=== PATIENT | female | born 1965 | race American Indian/Alaskan Native ===

== ENCOUNTER 2017-05-10 18:06 | Emergency (ER) | payer MEDICAID, OTHER ==
[2017-05-10 19:42] VITALS: BP 141/74
[2017-05-10] MEDS ORDERED: Acetaminophen 325 MG Tab PO ONE (21:10)
--- NOTE | 2017-05-10 21:16 | EDM.PDOC ---
ED HPI GENERAL MEDICAL PROBLEM - General Chief Complaint: Lower Extremity Injury/Pain Stated Complaint: PAIN IN FEET [id number] Time Seen by Provider: 05/10/17 21:08 Source of Information: Reports: Patient History Limitations: Reports: No Limitations - History of Present Illness INITIAL COMMENTS - FREE TEXT/NARRATIVE: Bilateral foot pain for a month. No change, Was given some medication from foot dr but doesnt know what medication ws or what type of reaction she had. Upcoming appointment in am wwith PCP regarding foot pain, but wanted to lseep tonight. Pain better if walking worse if still . Only tried aspirin this am. Does not check her blood sugars. Bilateral Feet Pain Score (Numeric/FACES): 4 - Related Data Allergies Allergy/AdvReac Type Severity Reaction Status Date / Time aspirin Allergy Hives Verified 05/10/17 19:35 Home Meds: Home Meds metFORMIN [Glucophage] 500 mg PO BIDMEALS 05/10/17 [History] Past Medical History Respiratory History: Reports: Asthma Endocrine/Metabolic History: Reports: Diabetes, Type II Social & Family History - Family History Family Medical History: Noncontributory - Tobacco Use Smoking Status *Q: Current Some Day Smoker Years of Tobacco use: 1 Packs/Tins Daily: 0.2 Used Tobacco, but Quit: No Second Hand Smoke Exposure: Yes - Caffeine Use Caffeine Use: Reports: Coffee, Soda - Alcohol Use Days Per Week of Alcohol Use: 0 Number of Drinks Per Day: 6 Total Drinks Per Week: 0 - Recreational Drug Use Recreational Drug Use: No - Living Situation & Occupation Living situation: Reports: with Family Occupation: Unemployed Review of Systems - Review of Systems Review Of Systems: ROS reveals no pertinent complaints other than HPI. ED EXAM, GENERAL - Physical Exam Exam: See Below Exam Limited By: No Limitations General Appearance: Alert, No Apparent Distress Eye Exam: Bilateral Eye: EOMI Ears: Normal External Exam, Normal TMs Nose: Normal Inspection Throat/Mouth: Normal Inspection, Normal Oropharynx, Inflammation Head: Atraumatic, Normocephalic Neck: Normal Inspection Respiratory/Chest: No Respiratory Distress Cardiovascular: Normal Peripheral Pulses, Regular Rate, Rhythm GI/Abdominal: Soft, Non-Tender, No Organomegaly Course - Vital Signs Last Recorded V/S: Last Vital Signs Temp 97.8 F 05/10/17 19:46 Pulse 65 05/10/17 19:46 Resp 16 05/10/17 19:46 BP 141/74 H 05/10/17 19:46 Pulse Ox 100 05/10/17 19:46 - Orders/Labs/Meds Labs: Laboratory Tests 05/10/17 Range/Units 21:16 POC Glucose 142 H (70-105) mg/dl Meds: Medications Discontinued Medications Generic Name Dose Route Start Last Admin Trade Name Bayron PRN Reason Stop Dose Admin Acetaminophen 650 mg 05/10/17 21:10 05/10/17 21:17 Tylenol PO 05/10/17 21:11 650 mg NOW ONE Administration Departure - Departure Time of Disposition: 21:16 Disposition: Home, Self-Care 01 Condition: Good Clinical Impression: Bilateral foot pain, Diabetes mellitus type 2, noninsulin dependent - Discharge Information Instructions: Diabetic Neuropathy Referrals: PCP,None [Primary Care Provider] - Forms: ED Department Discharge Additional Instructions: Follow up with primary care as scheduled in am tylenol 650mg every 4 hours as needed for discomfort
== END 2017-05-10 21:26 | disposition home or self-care (01) ==
LOC: DL.ED 18:06
DX: M79.672 Pain in left foot (principal); M79.671 Pain in right foot; E11.9 Type 2 diabetes mellitus without complications; F17.210 Nicotine dependence, cigarettes, uncomplicated; J45.909 Unspecified asthma, uncomplicated; Z79.84 Long term (current) use of oral hypoglycemic drugs; Z88.6 Allergy status to analgesic agent
CPT/HCPCS: 82962; 99283; A9270

== ENCOUNTER 2019-11-18 13:55 | Emergency (ER) | payer MEDICAID ==
--- NOTE | 2019-11-18 14:07 | EDM.PDOC ---
ED HPI GENERAL MEDICAL PROBLEM - General Chief Complaint: Chest Pain Stated Complaint: UNKNOWN- AMBULANCE Time Seen by Provider: 11/18/19 14:07 Source of Information: Reports: Patient, EMS, Old Records, RN, RN Notes Reviewed History Limitations: Reports: No Limitations - History of Present Illness INITIAL COMMENTS - FREE TEXT/NARRATIVE: Pt arrrives from home by [facility] with c/o cough and congestion for about 2 weeks. The cough worsened about 3 days ago and she has been getting up some green sputum. She also began to have sharp chest pains with coughing. Today she also had the pain with deep breathing. She cleans her house every day with bleach due to fear of the stearns virus. Today she thinks she breathed too much of the bleach and it made her cough more. She told her daughter that she had chest pain with coughing, so the daughter called 911. EMS gave one NTG 0.4mg without relief. Pt is allergic to Aspirin. Pt denies fever, chills, edema, wheezing, or syncope. She denies recent travel, or any exposure to confirmed or suspected Covid-19 cases. Chest Pain Score (Numeric/FACES): 6 - Related Data Allergies Allergy/AdvReac Type Severity Reaction Status Date / Time aspirin Allergy Hives Verified 11/18/19 14:12 Home Meds: Home Meds Insulin Glarg,Human.Rec.Analog [Lantus Solostar] 25 units SQ DAILY 11/18/19 [ History] Past Medical History Respiratory History: Reports: Asthma Endocrine/Metabolic History: Reports: Diabetes, Type II, Obesity/BMI 30+ Social & Family History - Family History Family Medical History: Noncontributory - Caffeine Use Caffeine Use: Reports: Coffee, Soda - Living Situation & Occupation Living situation: Reports: with Family Occupation: Unemployed ED ROS GENERAL - Review of Systems Review Of Systems: Comprehensive ROS is negative, except as noted in HPI. ED EXAM, GENERAL - Physical Exam Exam: See Below Exam Limited By: No Limitations General Appearance: Alert, WD/WN, No Apparent Distress, Obese Eye Exam: Bilateral Eye: Normal Inspection Nose: Normal Inspection, Normal Mucosa, No Blood Throat/Mouth: Normal Inspection, Normal Oropharynx, Normal Voice, No Airway Compromise Head: Atraumatic, Normocephalic Neck: Normal Inspection, Supple, Non-Tender, Full Range of Motion. No: Lymphadenopathy (L), Lymphadenopathy (R) Respiratory/Chest: No Respiratory Distress, Lungs Clear, Normal Breath Sounds, No Accessory Muscle Use, Other (Dry cough. Chest pain is reproducible by palpation.) Cardiovascular: Regular Rate, Rhythm, No Edema GI/Abdominal: Normal Bowel Sounds, Soft, Non-Tender, Other (Benign obese abdomen ) Back Exam: Normal Inspection Extremities: Normal Inspection, Normal Range of Motion, Non-Tender, No Pedal Edema. No: Odell's Sign Neurological: Alert, Oriented, CN II-XII Intact, Normal Cognition, No Motor/ Sensory Deficits Psychiatric: Normal Affect, Normal Mood Skin Exam: Warm, Dry, Intact, Normal Color, No Rash EKG INTERPRETATION EKG Date: 11/18/19 Time: 14:05 Rhythm: Other (Sinus edmundo) Rate (Beats/Min): 57 [place]: Normal P-Wave: Present QRS: Normal ST-T: Other (nonspecific T wave changes.) QT: Normal Comparison: NA - No Prior EKG Course - Vital Signs Last Recorded V/S: Last Vital Signs Temp 97.2 F 11/18/19 14:05 Pulse 61 11/18/19 14:05 Resp 18 11/18/19 14:05 BP 166/76 H 11/18/19 14:05 Pulse Ox 98 11/18/19 14:05 - Orders/Labs/Meds Orders: Active Orders 24 hr Category Date Time Status EKG 12 Lead [EKG Documentation Completion] [RC] STAT Care 11/18/19 14:07 Active B-TYPE NATRIURETIC PEPTIDE,BNP [CHEM] Stat Lab 11/18/19 14:24 Results COMPREHENSIVE METABOLIC PN,CMP [CHEM] Stat Lab 11/18/19 14:24 Results LIPASE [CHEM] Stat Lab 11/18/19 14:24 Results TROPONIN I [CHEM] Stat Lab 11/18/19 14:24 Results Labs: Laboratory Tests 11/18/19 11/18/19 Range/Units 14:24 14:24 WBC 6.5 (5.0-10.0) 10^3/uL RBC 4.91 (4.2-5.4) 10^6/uL Hgb 13.4 D (12.0-16.0) g/dL Hct 38.6 (37.0-47.0) % MCV 78.6 L D (80-100) fL MCH 27.3 (27.0-34.0) pg MCHC 34.7 (33.0-35.0) g/dL Plt Count 215 (150-450) 10^3/uL Neut % (Auto) 60.6 (42.2-75.2) % Lymph % (Auto) 30.1 (20.5-50.1) % [place] % (Auto) 5.9 (2-8) % Eos % (Auto) 3.1 H (1.0-3.0) % Baso % (Auto) 0.3 (0.0-1.0) % Sodium 138 (136-145) mmol/L Potassium 3.8 (3.5-5.1) mmol/L Chloride 100 (98-107) mmol/L Carbon Dioxide 26 (21-32) mmol/L Anion Gap 15.8 H (7-13) mEq/L BUN 6 L (7-18) mg/dL Creatinine 0.65 (0.55-1.02) mg/dL Est Cr Clr Drug Dosing 86.96 mL/min Estimated GFR (MDRD) > 60 BUN/Creatinine Ratio 9.2 (No establ ref range) Glucose 267 H (74-99) mg/dL Calcium 8.3 L (8.5-10.1) mg/dL Total Bilirubin 0.6 (0.2-1.0) mg/dL AST 14 L (15-37) U/L ALT 17 (14-59) U/L Alkaline Phosphatase 114 (46-116) U/L Troponin I < 0.017 (0.000-0.056) ng/mL Total Protein 7.6 (6.4-8.2) g/dL Albumin 3.3 L (3.4-5.0) g/dL Globulin 4.3 Albumin/Globulin Ratio 0.77 Lipase 94 (73-393) U/L Meds: Medications Discontinued Medications Generic Name Dose Route Start Last Admin Trade Name Freq PRN Reason Stop Dose Admin Promethazine HCl/Codeine 10 ml 11/18/19 14:09 11/18/19 14:18 Phenergan With Codeine PO 11/18/19 14:10 10 ml ONETIME ONE Administration - Radiology Interpretation Free Text/Narrative:: CXR: no acute process per Rad. report. Departure - Departure Time of Disposition: 15:03 Disposition: Home, Self-Care 01 Condition: Good Clinical Impression: Pleuritic chest pain Acute bronchitis Qualifiers: Bronchitis organism: other organism Qualified Code(s): J20.8 - Acute bronchitis due to other specified organisms - Discharge Information *PRESCRIPTION DRUG MONITORING PROGRAM REVIEWED*: Not Applicable *COPY OF PRESCRIPTION DRUG MONITORING REPORT IN PATIENT ANURADHA: Not Applicable Instructions: Acute Bronchitis, Adult, [id number], Pleurisy, [id number] Forms: ED Department Discharge Additional Instructions: Rx: Tessalon Perles 200mg Rx: Tylenol No. 3 Follow up in clinic if not improving in 1 week. Sepsis Event Note - Focused Exam Vital Signs: Vital Signs Temp Pulse Resp BP Pulse Ox 11/18/19 14:05 97.2 F 61 18 166/76 H 98 Date Exam was Performed: 11/18/19 Time Exam was Performed: 15:02 - My Orders Last 24 Hours: My Active Orders 11/18/19 14:07 EKG 12 Lead [EKG Documentation Completion] [RC] STAT 11/18/19 14:24 B-TYPE NATRIURETIC PEPTIDE,BNP [CHEM] Stat COMPREHENSIVE METABOLIC PN,CMP [CHEM] Stat LIPASE [CHEM] Stat TROPONIN I [CHEM] Stat - Assessment/Plan Last 24 Hours: My Active Orders 11/18/19 14:07 EKG 12 Lead [EKG Documentation Completion] [RC] STAT 11/18/19 14:24 B-TYPE NATRIURETIC PEPTIDE,BNP [CHEM] Stat COMPREHENSIVE METABOLIC PN,CMP [CHEM] Stat LIPASE [CHEM] Stat TROPONIN I [CHEM] Stat
[2019-11-18] MEDS ORDERED: Codeine/Promethazine 10-6.25 MG/5 ML Syrup 5 ML UD Cup PO ONE (14:09)
[2019-11-18 14:11] VITALS: BP 166/76; PULSE 61
--- NOTE | 2019-11-18 14:49 | CR ---
EXAMINATION: Chest 1V Frontal SEX: Female AGE: 54 years CLINICAL HISTORY: 54-year-old female complaining of chest PAIN and productive COUGH. INTERPRETATION: (Upright AP portable chest) 1. Reasonable inspiratory effort obese female. External library monitor leads. 2. Normal cardiac silhouette and pulmonary vascularity. No alveolar edema or dependent effusion. 3. No lung mass or hilar lymphadenopathy. 4. No focal lobar infiltrates, atelectasis or collapse. 5. No pneumothorax or pneumomediastinum. Midline tracheal airway and proximal bronchi unremarkable. CONCLUSION: No acute cardiopulmonary abnormality.
[2019-11-18 14:51] LABS: ANION GAP 15.8 mEq/L (7-13); CHLORIDE,CL 100 mmol/L (98-107); SODIUM,NA 138 mmol/L (136-145)
== END 2019-11-18 15:21 | disposition home or self-care (01) ==
LOC: DL.ED 13:55
DX: J20.8 Acute bronchitis due to other specified organisms (principal); J45.909 Unspecified asthma, uncomplicated; E11.9 Type 2 diabetes mellitus without complications; E66.9 Obesity, unspecified; Z68.44 Body mass index [BMI] 60.0-69.9, adult; Z88.8 Allergy status to other drugs, medicaments and biological substances; Z79.4 Long term (current) use of insulin
CPT/HCPCS: 36415; 71045; 80053; 83690; 83880; 84484; 85025; 93005; 99284; A9270

== ENCOUNTER 2020-07-01 17:17 | Emergency (ER) | payer MEDICAID ==
[2020-07-01 17:23] VITALS: BP 164/64; PULSE 58
--- NOTE | 2020-07-01 18:38 | EDM.PDOC ---
ED HPI GENERAL MEDICAL PROBLEM - General Chief Complaint: Respiratory Problem Stated Complaint: AMBULANCE Time Seen by Provider: 07/01/20 18:25 Source of Information: Reports: Patient, RN, RN Notes Reviewed History Limitations: Reports: No Limitations - History of Present Illness INITIAL COMMENTS - FREE TEXT/NARRATIVE: Patient presents to ER per [facility] with complaint of chest pains and shortness of breath, dizziness which began today. Patient states she has been quarantined since Thursday as she was exposed to a cousin who was positive. Patient states she has had a headache on Thursday. States she has been having the chest pain shortness of breath and dizziness today. Denies any fever chills, nausea, vomiting, diarrhea. Patient states she has not lost her sense of taste or smell. Onset: Today, Gradual Bilateral Chest Pain Score (Numeric/FACES): 6 - Related Data Allergies Allergy/AdvReac Type Severity Reaction Status Date / Time aspirin Allergy Hives Verified 07/01/20 17:24 Home Meds: Home Meds Insulin Glarg,Human.Rec.Analog [Lantus Solostar] 25 units SQ DAILY 11/18/19 [History] Insulin Aspart [NovoLOG] 50 units SQ TID 07/01/20 [History] Past Medical History HEENT History: Reports: None Cardiovascular History: Reports: Hypertension Respiratory History: Reports: Asthma Gastrointestinal History: Reports: None Genitourinary History: Reports: None REAL ESTATE REP History: Reports: None Musculoskeletal History: Reports: None Neurological History: Reports: None Psychiatric History: Reports: None Endocrine/Metabolic History: Reports: Diabetes, Type II, Obesity/BMI 30+ Hematologic History: Reports: None Immunologic History: Reports: None Oncologic (Cancer) History: Reports: None Dermatologic History: Reports: None - Infectious Disease History Infectious Disease History: Reports: None - Past Surgical History Head Surgeries/Procedures: Reports: None Social & Family History - Family History Family Medical History: No Pertinent Family History - Tobacco Use Tobacco Use Status *Q: Never Tobacco User Second Hand Smoke Exposure: No - Caffeine Use Caffeine Use: Reports: Coffee, Soda - Recreational Drug Use Recreational Drug Use: No - Living Situation & Occupation Living situation: Reports: with Family Occupation: Unemployed ED ROS GENERAL - Review of Systems Review Of Systems: Comprehensive ROS is negative, except as noted in HPI. ED EXAM, GENERAL - Physical Exam Exam: See Below Exam Limited By: No Limitations General Appearance: Alert, WD/WN, No Apparent Distress Eye Exam: Bilateral Eye: EOMI, Normal Inspection Ears: Normal External Exam, Hearing Grossly Normal Nose: Normal Inspection Throat/Mouth: Normal Inspection, Normal Voice, No Airway Compromise Head: Atraumatic, Normocephalic Neck: Normal Inspection, Supple, Non-Tender, Full Range of Motion Respiratory/Chest: No Respiratory Distress, Lungs Clear, Normal Breath Sounds, No Accessory Muscle Use, Chest Non-Tender Cardiovascular: Normal Peripheral Pulses, Regular Rate, Rhythm, No Edema, No Gallop, No JVD, No Murmur, No Rub Peripheral Pulses: 2+: Radial (L), Radial (R) GI/Abdominal: Normal Bowel Sounds, Soft, Non-Tender (Female) Exam: Deferred Rectal (Female) Exam: Deferred Back Exam: Normal Inspection, Full Range of Motion, NT Extremities: Normal Inspection, Normal Range of Motion, Non-Tender, Normal Capillary Refill, No Pedal Edema Neurological: Alert, Oriented, CN II-XII Intact, Normal Cognition, Normal Gait, Normal Reflexes, No Motor/Sensory Deficits Psychiatric: Normal Affect, Normal Mood Skin Exam: Warm, Dry, Intact, Normal Color, No Rash Lymphatic: No Adenopathy Course - Vital Signs Last Recorded V/S: Last Vital Signs Temp 98.9 F 07/01/20 17:18 Pulse 58 L 07/01/20 17:18 Resp 18 07/01/20 17:18 BP 164/64 H 07/01/20 17:18 Pulse Ox 98 07/01/20 17:18 - Orders/Labs/Meds Orders: Active Orders 24 hr Category Date Time Status EKG 12 Lead [EKG Documentation Completion] [RC] STAT Care 07/01/20 17:31 Active CORONAVIRUS COVID-19 PCR PHL Stat Lab 07/01/20 17:37 Received Azithromycin [Zithromax] Med 07/01/20 19:05 Once 500 mg PO ONETIME ONE predniSONE Med 07/01/20 19:06 Once 40 mg PO ONETIME ONE Labs: Laboratory Tests 07/01/20 07/01/20 Range/Units 18:19 18:19 WBC 4.7 L (5.0-10.0) 10^3/uL RBC 4.91 (4.2-5.4) 10^6/uL Hgb 13.5 (12.0-16.0) g/dL Hct 39.6 (37.0-47.0) % MCV 80.7 (80-100) fL MCH 27.5 (27.0-34.0) pg MCHC 34.1 (33.0-35.0) g/dL Plt Count 226 (150-450) 10^3/uL Neut % (Auto) 45.4 (42.2-75.2) % Lymph % (Auto) 38.5 (20.5-50.1) % [place] % (Auto) 12.3 H (2-8) % Eos % (Auto) 3.6 H (1.0-3.0) % Baso % (Auto) 0.2 (0.0-1.0) % Sodium 139 (136-145) mmol/L Potassium 3.9 (3.5-5.1) mmol/L Chloride 102 (98-107) mmol/L Carbon Dioxide 29 (21-32) mmol/L Anion Gap 11.9 (7-13) mEq/L BUN 6 L (7-18) mg/dL Creatinine 0.67 (0.55-1.02) mg/dL Est Cr Clr Drug Dosing 80.00 mL/min Estimated GFR (MDRD) > 60 BUN/Creatinine Ratio 9.0 (No establ ref range) Glucose 137 H (74-99) mg/dL Calcium 8.7 (8.5-10.1) mg/dL Total Bilirubin 0.8 (0.2-1.0) mg/dL AST 16 (15-37) U/L ALT 18 (14-59) U/L Alkaline Phosphatase 107 (46-116) U/L Troponin I < 0.017 (0.000-0.056) ng/mL Total Protein 7.8 (6.4-8.2) g/dL Albumin 3.4 (3.4-5.0) g/dL Globulin 4.4 Albumin/Globulin Ratio 0.8 - Radiology Interpretation Free Text/Narrative:: Chest xray: PROCEDURE INFORMATION: Exam: XR Chest, 1 View Exam date and time: 07/01/2020 6:44 PM Age: 55 years old Clinical indication: Cough; Additional info: Cough, covid exposure TECHNIQUE: Imaging protocol: XR of the chest Views: 1 view. COMPARISON: No relevant prior studies available. FINDINGS: Lungs: Unremarkable. No consolidation. Pleural space: Unremarkable. No pleural effusion. No pneumothorax. Heart/Mediastinum: Unremarkable. No cardiomegaly. Bones/joints: Unremarkable. IMPRESSION: No acute findings. Thank you for allowing us to participate in the care of your patient. Dictated and Authenticated by: Lion Tavares MD 07/01/2020 6:58 PM Central Time ([place] & [place]) See rad report Departure - Departure Time of Disposition: 19:06 Disposition: Home, Self-Care 01 Condition: Good Clinical Impression: Upper respiratory infection Qualifiers: URI type: unspecified viral URI Qualified Code(s): J06.9 - Acute upper respiratory infection, unspecified - Discharge Information *PRESCRIPTION DRUG MONITORING PROGRAM REVIEWED*: No *COPY OF PRESCRIPTION DRUG MONITORING REPORT IN PATIENT ANURADHA: No Instructions: Viral Respiratory Infection, [id number], Upper Respiratory Infection, Adult, [id number] Forms: ED Department Discharge Additional Instructions: RX: Azithromycin, Prednisone Stay isolated and quarantine until you hear your results Follow up with your primary care facility Return to the ER with any worsening of problems Rest, drink plenty of fluids Sepsis Event Note (ED) - Evaluation Sepsis Screening Result: No Definite Risk - Focused Exam Vital Signs: Vital Signs Temp Pulse Resp BP Pulse Ox 07/01/20 17:18 98.9 F 58 L 18 164/64 H 98 - My Orders Last 24 Hours: My Active Orders 07/01/20 17:31 EKG 12 Lead [EKG Documentation Completion] [RC] STAT 07/01/20 17:37 CORONAVIRUS COVID-19 PCR PHL Stat 07/01/20 19:05 Azithromycin [Zithromax] 500 mg PO ONETIME ONE 07/01/20 19:06 predniSONE 40 mg PO ONETIME ONE - Assessment/Plan Last 24 Hours: My Active Orders 07/01/20 17:31 EKG 12 Lead [EKG Documentation Completion] [RC] STAT 07/01/20 17:37 CORONAVIRUS COVID-19 PCR PHL Stat 07/01/20 19:05 Azithromycin [Zithromax] 500 mg PO ONETIME ONE 07/01/20 19:06 predniSONE 40 mg PO ONETIME ONE
[2020-07-01 18:41] LABS: ANION GAP 11.9 mEq/L (7-13); CHLORIDE,CL 102 mmol/L (98-107); SODIUM,NA 139 mmol/L (136-145)
--- NOTE | 2020-07-01 18:58 | CR ---
PROCEDURE INFORMATION: Exam: XR Chest, 1 View Exam date and time: 07/01/2020 6:44 PM Age: 55 years old Clinical indication: Cough; Additional info: Cough, covid exposure TECHNIQUE: Imaging protocol: XR of the chest Views: 1 view. COMPARISON: No relevant prior studies available. FINDINGS: Lungs: Unremarkable. No consolidation. Pleural space: Unremarkable. No pleural effusion. No pneumothorax. Heart/Mediastinum: Unremarkable. No cardiomegaly. Bones/joints: Unremarkable. IMPRESSION: No acute findings.
[2020-07-01] MEDS ORDERED: Azithromycin 250 MG Tab PO ONE (19:05)
[2020-07-01] MEDS ORDERED: predniSONE 20 MG Tab PO ONE (19:06)
== END 2020-07-01 19:19 | disposition home or self-care (01) ==
LOC: DL.ED 17:17
DX: U07.1 COVID-19 (principal); J06.9 Acute upper respiratory infection, unspecified; I10 Essential (primary) hypertension; J45.909 Unspecified asthma, uncomplicated; E11.9 Type 2 diabetes mellitus without complications; E66.9 Obesity, unspecified; Z88.8 Allergy status to other drugs, medicaments and biological substances; Z79.4 Long term (current) use of insulin; Z68.31 Body mass index [BMI] 31.0-31.9, adult
CPT/HCPCS: 36415; 71045; 80053; 84484; 85025; 87635; 93005; 99285; A9270; J7512; U0002

== ENCOUNTER 2021-05-17 04:05 | Emergency (ER) | payer MEDICAID ==
--- NOTE | 2021-05-17 04:42 | EDM.PDOC ---
"<Ibrahima Turner - Last Filed: 05/17/21 08:06> ED HPI GENERAL MEDICAL PROBLEM - General Stated Complaint: AMBULANCE Time Seen by Provider: 05/17/21 04:20 - Related Data Allergies Allergy/AdvReac Type Severity Reaction Status Date / Time aspirin Allergy Hives Verified 07/01/20 17:24 Home Meds: Home Meds Insulin Glarg,Human.Rec.Analog [Lantus Solostar] 25 units SQ DAILY 11/18/19 [History] Insulin Aspart [NovoLOG] 50 units SQ TID 07/01/20 [History] Course - Radiology Interpretation Free Text/Narrative:: [facility] Final Radiology Report Call: [phone] assistance Online chat: [email or web address] Name: LORRAINE CUETO Age: 56Years F Date: 05/17/2021 SSN: -- : [id number] Study: CT ABDOMEN PELVIS W CONT Requesting Physician: Vera Mckeon Images: [id number] Addl Studies: Provided Clinical History: RLQ pain x1 week Contrast: With Contrast Medium: Isovue 300 Contrast Amount: 75 mL Contrast Method: Intravenous (IV) Page 1 of 2 PROCEDURE INFORMATION: Exam: CT Abdomen And Pelvis With Contrast Exam date and time: 05/17/2021 5:26 AM Age: 56 years old Clinical indication: Other: Rlq pain x1 week TECHNIQUE: Imaging protocol: Computed tomography of the abdomen and pelvis with contrast. Radiation optimization: All CT scans at this facility use at least one of these dose optimization techniques: automated exposure control; mA and/or kV adjustment per patient size (includes targeted exams where dose is matched to clinical indication); or iterative reconstruction. Contrast material: ISOVUE 300; Contrast volume: 75 ml; Contrast route: INTRAVENOUS (IV); COMPARISON: No relevant prior studies available. FINDINGS: Lungs: There is dependent atelectasis at the lung bases bilaterally. Liver: There is a diffuse decrease in hepatic parenchymal density, consistent with mild fatty infiltration. Gallbladder and bile ducts: Cholelithiasis without ancillary signs to suggest acute cholecystitis. Pancreas: Normal. No ductal dilation. Spleen: Normal. No splenomegaly. Adrenal glands: 7 mm nodule at the medial limb of the left adrenal gland measuring greater than expected for non hyperfunctioning adrenal adenoma. Kidneys and ureters: Normal. No hydronephrosis. Stomach and bowel: Unremarkable. No obstruction. No mucosal thickening. Appendix: No evidence of appendicitis. LORRAINE CUETO | Final Radiology Report CONFIDENTIALITY STATEMENT This report is intended only for use by the referring physician, and only in accordance with law. If you received this in error, call [phone]. Page 2 of 2 Intraperitoneal space: Unremarkable. No free air. No significant fluid collection. Vasculature: Unremarkable. No abdominal aortic aneurysm. Lymph nodes: Unremarkable. No enlarged lymph nodes. Urinary bladder: Unremarkable as visualized. Reproductive: Nodular contour to the uterus suggesting myomatous involvement. Bones/joints: Degenerative disc disease at the L5-S1 level Soft tissues: Unremarkable. IMPRESSION: 1. Nodular contour to the uterus suggesting myomatous involvement. 2. Cholelithiasis without ancillary signs to suggest acute cholecystitis. 3. 7 mm nodule at the medial limb of the left adrenal gland measuring greater than expected for non hyperfunctioning adrenal adenoma. COMMENTS: Consistent with the [employer]'s Incidental Findings Committee white paper (J Am Ivan Radiol 2017): Any incidental adrenal lesion less than or equal to 1 cm is likely benign. No follow-up imaging is recommended for these lesions per consensus recommendations based on imaging criteria. Further lab evaluation could be pursued if warranted based on clinical findings. Thank you for allowing us to participate in the care of your patient. Dictated and Authenticated by: Douglas Mccarthy MD 05/17/2021 7:58 AM Central Time ([place] & [place]) Departure - Departure Disposition: Home, Self-Care 01 Clinical Impression: Gall stones - Discharge Information Instructions: Cholelithiasis Forms: ED Department Discharge Additional Instructions: Use tylenol and motrin for pain as needed. Avoid fatty foods as they may exace rbate your pain. Follow up with your primary care facility next week to discuss further treatment of your gall stones. If any new symptoms or concerns develop contact your primary care facility or return to the ER. <Prakash Villarreal - Last Filed: 05/17/21 08:46> Course - Re-Assessments/Exams Free Text/Narrative Re-Assessment/Exam: 05/17/21 08:46 assumed care from Gabbie Mckeon at shift change 05/17/21 08:47 I have discussed the labs, exam and ct findings with the pt and instructed her to follow up with her PCP about her CT results. 05/17/21 08:48 Departure - Departure Time of Disposition: 08:48 Condition: Good - Discharge Information *PRESCRIPTION DRUG MONITORING PROGRAM REVIEWED*: Not Applicable *COPY OF PRESCRIPTION DRUG MONITORING REPORT IN PATIENT ANURADHA: Not Applicable <Vera Mckeon - Last Filed: 05/22/21 08:44> ED HPI GENERAL MEDICAL PROBLEM - General Source of Information: Reports: Patient, EMS, RN, RN Notes Reviewed History Limitations: Reports: No Limitations - History of Present Illness INITIAL COMMENTS - FREE TEXT/NARRATIVE: Lorraine is a 56 y/o male who presents to the ED via [facility] with complaints of RUQ and RLQ abdominal pain. The patient reports the pain began about one week ago and has waxed and waned over that time. She characterizes the pain as a sharp stabbing that only occurs in the morning when she first wakes up. She is unsure what alleviating factors have helped during the past week. She notes she was in the clinic and a CT was ordered for her yesterday, however she developed a toothache and decided to go to the dentist instead. She denies fever, shaking chills, shortness of breath, nausea, vomiting, dysuria, hematuria, or diarrhea. She does attest to no bowel movement for the past two days, but notes that is normal per her routine. She denies decrease in appetite. She denies tobacco, alcohol, or recreational drug use. 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 Musculoskeletal History: Reports: None Neurological History: Reports: None Psychiatric History: Reports: None Endocrine/Metabolic History: Reports: Diabetes, Type II, Obesity/BMI 30+ Hematologic History: Reports: None Immunologic History: Reports: None Oncologic (Cancer) History: Reports: None Dermatologic History: Reports: None - Infectious Disease History Infectious Disease History: Reports: None - Past Surgical History Head Surgeries/Procedures: Reports: None Social & Family History - Family History Family Medical History: No Pertinent Family History - Caffeine Use Caffeine Use: Reports: Coffee, Soda - Living Situation & Occupation Living situation: Reports: with Family Occupation: Unemployed ED ROS GENERAL - Review of Systems Review Of Systems: Comprehensive ROS is negative, except as noted in HPI. ED EXAM, GI/ABD - Physical Exam Exam: See Below Exam Limited By: No Limitations General Appearance: Alert, Mild Distress (Abdominal pain) Ears: Normal External Exam, Hearing Grossly Normal Nose: Normal Inspection, Normal Mucosa Throat/Mouth: Normal Inspection, Normal Oropharynx, Normal Voice, No Airway Compromise. No: Normal Teeth (Poor dentition) Head: Atraumatic, Normocephalic Neck: Normal Inspection, Full Range of Motion Respiratory/Chest: No Respiratory Distress, Lungs Clear, Normal Breath Sounds, No Accessory Muscle Use, Chest Non-Tender Cardiovascular: Normal Peripheral Pulses, Regular Rate, Rhythm, No Edema, No Gallop, No JVD, No Murmur, No Rub GI/Abdominal Exam: Normal Bowel Sounds, Soft, No Distention, No Abnormal Bruit, No Mass, Pelvis Stable, Tender (To palpation of RLQ) (Female) Exam: Deferred Rectal (Female) Exam: Deferred Back Exam: Full Range of Motion, CVA Tenderness (R). No: CVA Tenderness (L) Extremities: Normal Inspection, Normal Range of Motion, Normal Capillary Refill Neurological: Alert, Oriented, CN II-XII Intact, Normal Cognition, Normal Gait, No Motor/Sensory Deficits Psychiatric: Normal Affect, Normal Mood Skin Exam: Warm, Dry, Intact, Normal Color, No Rash. No: Cyanosis, Jaundice, Mottled, Pallor Course - Vital Signs Last Recorded V/S: Last Vital Signs Temp 96.9 F 05/17/21 04:27 Pulse 64 05/17/21 04:27 Resp 18 05/17/21 04:27 BP 180/73 H 05/17/21 04:27 Pulse Ox 99 05/17/21 04:27 - Orders/Labs/Meds Labs: Laboratory Tests 05/17/21 05/17/21 05/17/21 Range/Units 04:27 04:27 04:27 WBC 7.3 (5.0-10.0) 10^3/uL RBC 5.23 (4.2-5.4) 10^6/uL Hgb 13.9 (12.0-16.0) g/dL Hct 41.9 (37.0-47.0) % MCV 80.1 (80-100) fL MCH 26.6 L (27.0-34.0) pg MCHC 33.2 (33.0-35.0) g/dL Plt Count 294 (150-450) 10^3/uL Neut % (Auto) 61.2 (42.2-75.2) % Lymph % (Auto) 26.5 (20.5-50.1) % [place] % (Auto) 6.8 (2-8) % Eos % (Auto) 5.2 H (1.0-3.0) % Baso % (Auto) 0.3 (0.0-1.0) % Sodium 139 (136-145) mmol/L Potassium 3.7 (3.5-5.1) mmol/L Chloride 103 (98-107) mmol/L Carbon Dioxide 23 (21-32) mmol/L Anion Gap 16.7 H (7-13) mEq/L BUN 7 (7-18) mg/dL Creatinine 0.78 (0.55-1.02) mg/dL Est Cr Clr Drug Dosing 67.89 mL/min Estimated GFR (MDRD) > 60 BUN/Creatinine Ratio 9.0 (No establ ref range) Glucose 270 H (70-99) mg/dL Lactic Acid 2.5 H* (0.4-2.0) mmol/L Calcium 8.7 (8.5-10.1) mg/dL Magnesium 1.9 (1.8-2.4) mg/dL Total Bilirubin 0.6 (0.2-1.0) mg/dL AST 12 L (15-37) U/L ALT 16 (14-59) U/L Alkaline Phosphatase 151 H (46-116) U/L C-Reactive Protein 1.5 H (0.0-0.9) mg/dL Total Protein 8.4 H (6.4-8.2) g/dL Albumin 3.4 (3.4-5.0) g/dL Globulin 5.0 Albumin/Globulin Ratio 0.7 Amylase 16 L (25-115) U/L Lipase 60 L (73-393) U/L Urine Color (YELLOW) Urine Appearance (CLEAR) Urine pH (5.0-9.0) Ur Specific [place] (1.005-1.030) Urine Protein (NEGATIVE) Urine Glucose (UA) (NEGATIVE) Urine Ketones (NEGATIVE) Urine Occult Blood (NEGATIVE) Urine Nitrite (NEGATIVE) Urine Bilirubin (NEGATIVE) Urine Urobilinogen (0.2-1.0) mg/dL Ur Leukocyte Esterase (NEGATIVE) Urine Opiates Screen (NEGATIVE) Ur Oxycodone Screen (NEGATIVE) Urine Methadone Screen (NEGATIVE) Ur Barbiturates Screen (NEGATIVE) U Tricyclic Antidepress (NEGATIVE) Ur Phencyclidine Scrn (NEGATIVE) Ur Amphetamine Screen (NEGATIVE) U Methamphetamines Scrn (NEGATIVE) Urine MDMA Screen (NEGATIVE) U Benzodiazepines Scrn (NEGATIVE) Urine Cocaine Screen (NEGATIVE) U Marijuana (THC) Screen (NEGATIVE) Ethyl Alcohol < 3 (0) mg/dL 05/17/21 05/17/21 05/17/21 Range/Units 04:38 04:38 07:40 WBC (5.0-10.0) 10^3/uL RBC (4.2-5.4) 10^6/uL Hgb (12.0-16.0) g/dL Hct (37.0-47.0) % MCV (80-100) fL MCH (27.0-34.0) pg MCHC (33.0-35.0) g/dL Plt Count (150-450) 10^3/uL Neut % (Auto) (42.2-75.2) % Lymph % (Auto) (20.5-50.1) % [place] % (Auto) (2-8) % Eos % (Auto) (1.0-3.0) % Baso % (Auto) (0.0-1.0) % Sodium (136-145) mmol/L Potassium (3.5-5.1) mmol/L Chloride (98-107) mmol/L Carbon Dioxide (21-32) mmol/L Anion Gap (7-13) mEq/L BUN (7-18) mg/dL Creatinine (0.55-1.02) mg/dL Est Cr Clr Drug Dosing mL/min Estimated GFR (MDRD) BUN/Creatinine Ratio (No establ ref range) Glucose (70-99) mg/dL Lactic Acid 1.4 (0.4-2.0) mmol/L Calcium (8.5-10.1) mg/dL Magnesium (1.8-2.4) mg/dL Total Bilirubin (0.2-1.0) mg/dL AST (15-37) U/L ALT (14-59) U/L Alkaline Phosphatase (46-116) U/L C-Reactive Protein (0.0-0.9) mg/dL Total Protein (6.4-8.2) g/dL Albumin (3.4-5.0) g/dL Globulin Albumin/Globulin Ratio Amylase (25-115) U/L Lipase (73-393) U/L Urine Color Yellow (YELLOW) Urine Appearance Clear (CLEAR) Urine pH 7.0 (5.0-9.0) Ur Specific [place] 1.015 (1.005-1.030) Urine Protein Negative (NEGATIVE) Urine Glucose (UA) 500 H (NEGATIVE) Urine Ketones Negative (NEGATIVE) Urine Occult Blood Negative (NEGATIVE) Urine Nitrite Negative (NEGATIVE) Urine Bilirubin Negative (NEGATIVE) Urine Urobilinogen 1.0 (0.2-1.0) mg/dL Ur Leukocyte Esterase Negative (NEGATIVE) Urine Opiates Screen Negative (NEGATIVE) Ur Oxycodone Screen Negative (NEGATIVE) Urine Methadone Screen Negative (NEGATIVE) Ur Barbiturates Screen Negative (NEGATIVE) U Tricyclic Antidepress Negative (NEGATIVE) Ur Phencyclidine Scrn Negative (NEGATIVE) Ur Amphetamine Screen Negative (NEGATIVE) U Methamphetamines Scrn Negative (NEGATIVE) Urine MDMA Screen Negative (NEGATIVE) U Benzodiazepines Scrn Negative (NEGATIVE) Urine Cocaine Screen Negative (NEGATIVE) U Marijuana (THC) Screen Negative (NEGATIVE) Ethyl Alcohol (0) mg/dL Meds: Medications Discontinued Medications Generic Name Dose Route Start Last Admin Trade Name Freq PRN Reason Stop Dose Admin Hydromorphone HCl 1 mg 05/17/21 04:43 05/17/21 04:47 Hydromorphone 1 Mg/Ml Syringe IVPUSH 05/17/21 04:44 1 mg ONETIME ONE Administration Iopamidol 100 ml 05/17/21 05:17 05/17/21 06:00 Iopamidol 612 Mg/Ml 100 Ml Bottle IVPUSH 05/17/21 05:18 75 ml ONETIME ONE Administration Ondansetron HCl 4 mg 05/17/21 05:34 05/17/21 05:36 Ondansetron 4 Mg/2 Ml Sdv IVPUSH 05/17/21 05:35 4 mg ONETIME ONE Administration Ondansetron HCl Confirm 05/17/21 05:35 05/17/21 05:36 Ondansetron 4 Mg/2 Ml Sdv Administered 05/17/21 05:36 Not Given Dose 4 mg .ROUTE .[facility] ONE - Re-Assessments/Exams Free Text/Narrative Re-Assessment/Exam: 05/17/21 Care of patient transferred to Prakash Villarreal PA-C at 0700"
[2021-05-17] MEDS ORDERED: HYDROmorphone 1 MG/ML Syringe IVPUSH ONE (04:43)
[2021-05-17 04:44] VITALS: BP 180/73; PULSE 64
[2021-05-17 05:04] LABS: ANION GAP 16.7 mEq/L (7-13); CHLORIDE,CL 103 mmol/L (98-107); SODIUM,NA 139 mmol/L (136-145)
[2021-05-17] MEDS ORDERED: Iopamidol 612 MG/ML 100 ML Bottle IVPUSH ONE (05:17)
[2021-05-17 05:18] LABS: AMPHETAMINES,URINE NEGATIVE (NEGATIVE); BARBITURATES,URINE NEGATIVE (NEGATIVE); BENZODIAZEPINE,URINE NEGATIVE (NEGATIVE); MDMA (ECSTASY), URINE NEGATIVE (NEGATIVE); METHADONE,URINE NEGATIVE (NEGATIVE); METHAMPHETAMINES,URINE NEGATIVE (NEGATIVE); OPIATES,URINE NEGATIVE (NEGATIVE); OXYCODONE,URINE NEGATIVE (NEGATIVE); PHENCYCLIDINE,URINE NEGATIVE (NEGATIVE); TCA,URINE NEGATIVE (NEGATIVE)
[2021-05-17] MEDS ORDERED: Ondansetron 4 MG/2 ML SDV IVPUSH ONE (05:34)
[2021-05-17] MEDS ORDERED: Ondansetron 4 MG/2 ML SDV ONE (05:35)
--- NOTE | 2021-05-17 07:59 | CT ---
PROCEDURE INFORMATION: Exam: CT Abdomen And Pelvis With Contrast Exam date and time: 05/17/2021 5:26 AM Age: 56 years old Clinical indication: Other: Rlq pain x1 week TECHNIQUE: Imaging protocol: Computed tomography of the abdomen and pelvis with contrast. Radiation optimization: All CT scans at this facility use at least one of these dose optimization techniques: automated exposure control; mA and/or kV adjustment per patient size (includes targeted exams where dose is matched to clinical indication); or iterative reconstruction. Contrast material: ISOVUE 300; Contrast volume: 75 ml; Contrast route: INTRAVENOUS (IV); COMPARISON: No relevant prior studies available. FINDINGS: Lungs: There is dependent atelectasis at the lung bases bilaterally. Liver: There is a diffuse decrease in hepatic parenchymal density, consistent with mild fatty infiltration. Gallbladder and bile ducts: Cholelithiasis without ancillary signs to suggest acute cholecystitis. Pancreas: Normal. No ductal dilation. Spleen: Normal. No splenomegaly. Adrenal glands: 7 mm nodule at the medial limb of the left adrenal gland measuring greater than expected for non hyperfunctioning adrenal adenoma. Kidneys and ureters: Normal. No hydronephrosis. Stomach and bowel: Unremarkable. No obstruction. No mucosal thickening. Appendix: No evidence of appendicitis. Intraperitoneal space: Unremarkable. No free air. No significant fluid collection. Vasculature: Unremarkable. No abdominal aortic aneurysm. Lymph nodes: Unremarkable. No enlarged lymph nodes. Urinary bladder: Unremarkable as visualized. Reproductive: Nodular contour to the uterus suggesting myomatous involvement. Bones/joints: Degenerative disc disease at the L5-S1 level Soft tissues: Unremarkable. IMPRESSION: 1. Nodular contour to the uterus suggesting myomatous involvement. 2. Cholelithiasis without ancillary signs to suggest acute cholecystitis. 3. 7 mm nodule at the medial limb of the left adrenal gland measuring greater than expected for non hyperfunctioning adrenal adenoma. COMMENTS: Consistent with the [employer]'s Incidental Findings Committee white paper (J Am Ivan Radiol 2017): Any incidental adrenal lesion less than or equal to 1 cm is likely benign. No follow-up imaging is recommended for these lesions per consensus recommendations based on imaging criteria. Further lab evaluation could be pursued if warranted based on clinical findings.
== END 2021-05-17 08:57 | disposition home or self-care (01) ==
LOC: DL.ED 04:05
DX: K80.20 Calculus of gallbladder without cholecystitis without obstruction (principal); I10 Essential (primary) hypertension; J45.909 Unspecified asthma, uncomplicated; E11.9 Type 2 diabetes mellitus without complications; E66.9 Obesity, unspecified; Z68.33 Body mass index [BMI] 33.0-33.9, adult; Z88.8 Allergy status to other drugs, medicaments and biological substances; Z79.4 Long term (current) use of insulin
CPT/HCPCS: 36415; 74177; 80053; 80305; 80307; 81003; 82150; 83605; 83690; 83735; 85025; 86140; 96374; 96375; 99284; J1170; J2405; Q9967

== ENCOUNTER 2021-06-14 00:31 | Emergency (ER) | payer MEDICAID ==
[2021-06-14] MEDS ORDERED: Ondansetron 4 MG/2 ML SDV IVPUSH ONE ×2 (00:35→03:41)
[2021-06-14] MEDS ORDERED: HYDROmorphone 1 MG/ML Syringe IVPUSH ONE ×3 (00:35→07:09)
[2021-06-14] MEDS ORDERED: Sodium Chloride 0.9% 1,000 ML IV ONE (00:35)
[2021-06-14 01:06] LABS: ANION GAP 15.4 mEq/L (7-13); CHLORIDE,CL 99 mmol/L (98-107); SODIUM,NA 137 mmol/L (136-145)
[2021-06-14] MEDS ORDERED: Metoclopramide 10 MG/2 ML SDV IVPUSH ONE (02:05)
[2021-06-14] MEDS ORDERED: Iopamidol 755 Mg/ML 100 ML Bottle IVPUSH ONE (03:12)
[2021-06-14] MEDS ORDERED: Ondansetron 4 MG/2 ML SDV ONE (03:41)
--- NOTE | 2021-06-14 04:54 | CT ---
PROCEDURE INFORMATION: Exam: CTA Chest With Contrast Exam date and time: 06/14/2021 3:45 AM Age: 56 years old Clinical indication: Other: D dimer 1080, ruq pain radiates to back; Additional info: +ddimer 1080, TECHNIQUE: Imaging protocol: Computed tomographic angiography of the chest with contrast. 3D rendering (Not supervised by radiologist): MIP and/or 3D reconstructed images were created and reviewed. Radiation optimization: All CT scans at this facility use at least one of these dose optimization techniques: automated exposure control; mA and/or kV adjustment per patient size (includes targeted exams where dose is matched to clinical indication); or iterative reconstruction. Contrast material: ISOVUE 370; Contrast volume: 79 ml; Contrast route: INTRAVENOUS (IV); COMPARISON: CR Chest 1V Frontal 07/01/2020 6:44 PM FINDINGS: Pulmonary arteries: No evidence for acute pulmonary emboli. Aorta: Unremarkable. No aortic aneurysm. No aortic dissection. Lungs: bilateral lower lobe and right middle lobe areas of infiltrate or atelectasis. Pleural spaces: Moderate sized right pleural effusion. Heart: Unremarkable. No cardiomegaly. No pericardial effusion. Lymph nodes: Unremarkable. No enlarged lymph nodes. Gallbladder and bile ducts: Images through the upper abdomen demonstrates evidence for cholelithiasis. Bones/joints: Unremarkable. No acute fracture. Soft tissues: Unremarkable. IMPRESSION: 1. Moderate size right effusion which is new since the prior study dated 05/17/2021.. 2. No evidence for acute pulmonary emboli. 3. Bilateral lower lobe and right middle lobe areas of infiltrate or atelectasis. The infiltrates are new since the prior study dated 05/17/2021 and may represent bilateral lower lobe pneumonia. 4. Images through the upper abdomen demonstrates evidence for cholelithiasis.
[2021-06-14] MEDS ORDERED: Azithromycin 500 MG in Sodium Chloride 0.9% 250 ML IV ONE (06:10)
[2021-06-14] MEDS ORDERED: cefTRIAXone 1 GM in Sodium Chloride 0.9% 50 ML IV ONE (06:10)
[2021-06-14 06:40] VITALS: BP 105/58; PULSE 64
--- NOTE | 2021-06-14 06:55 | EDM.PDOC ---
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 ED EXAM, GI/ABD - Physical Exam Text/Narrative:: No change to exam as documented by Neeta CR for this encounter. Course - Radiology Interpretation Free Text/Narrative:: [facility] [place] [facility] Final Radiology Report Call: [phone] assistance Online chat: [email or web address] Name: LOGAN CUETO Age: 56Years F Date: 06/14/2021 SSN: -- : [id number] Study: CT CHEST W CONT Requesting Physician: NEETA JEAN Images: 437 Addl Studies: Provided Clinical History: +Ddimer 1080, Contrast: With Contrast Medium: Isovue 370 Contrast Amount: 79 mL Contrast Method: Intravenous (IV) Page 1 of 2 PROCEDURE INFORMATION: Exam: CTA Chest With Contrast Exam date and time: 06/14/2021 3:45 AM Age: 56 years old Clinical indication: Other: D dimer 1080, ruq pain radiates to back; Additional info: +ddimer 1080, TECHNIQUE: Imaging protocol: Computed tomographic angiography of the chest with contrast. 3D rendering (Not supervised by radiologist): MIP and/or 3D reconstructed images were created and reviewed. Radiation optimization: All CT scans at this facility use at least one of these dose optimization techniques: automated exposure control; mA and/or kV adjustment per patient size (includes targeted exams where dose is matched to clinical indication); or iterative reconstruction. Contrast material: ISOVUE 370; Contrast volume: 79 ml; Contrast route: INTRAVENOUS (IV); COMPARISON: CR Chest 1V Frontal 07/01/2020 6:44 PM FINDINGS: Pulmonary arteries: No evidence for acute pulmonary emboli. Aorta: Unremarkable. No aortic aneurysm. No aortic dissection. Lungs: bilateral lower lobe and right middle lobe areas of infiltrate or atelectasis. Pleural spaces: Moderate sized right pleural effusion. Heart: Unremarkable. No cardiomegaly. No pericardial effusion. Lymph nodes: Unremarkable. No enlarged lymph nodes. Gallbladder and bile ducts: Images through the upper abdomen demonstrates evidence for cholelithiasis. Bones/joints: Unremarkable. No acute fracture. LOGAN CUETO | Final Radiology Report CONFIDENTIALITY STATEMENT This report is intended only for use by the referring physician, and only in accordance with law. If you received this in error, call [phone]. Page 2 of 2 Soft tissues: Unremarkable. IMPRESSION: 1. Moderate size right effusion which is new since the prior study dated 05/17/2021.. 2. No evidence for acute pulmonary emboli. 3. Bilateral lower lobe and right middle lobe areas of infiltrate or atelectasis. The infiltrates are new since the prior study dated 05/17/2021 and may represent bilateral lower lobe pneumonia. 4. Images through the upper abdomen demonstrates evidence for cholelithiasis. Thank you for allowing us to participate in the care of your patient. Dictated and Authenticated by: Felix Nicole MD 06/14/2021 4:53 AM Central Time ([place] & [place]) [facility] Final Radiology Report Call: [phone] assistance Online chat: [email or web address] Name: LOGAN CUETO Age: 56Years F Date: 06/14/2021 SSN: -- : [id number] Study: US ABDOMEN LTD Requesting Physician: ABIMAEL TURNER Images: 65 Addl Studies: Provided Clinical History: RUQ pain, vomiting, Hx gallstones Contrast: Without Contrast Medium: Contrast Amount: Contrast Method: Page 1 of 2 PROCEDURE INFORMATION: Exam: US Abdomen, Limited; Right Upper Quadrant Exam date and time: 06/14/2021 8:02 AM Age: 56 years old Clinical indication: Abdominal pain; Acute; Additional info: Ruq pain, vomiting, HX gallstones TECHNIQUE: Imaging protocol: US abdomen. Real time ultrasound with image documentation. Limited exam focused on the right upper quadrant. COMPARISON: 1. CT Abdomen Pelvis w Cont 05/17/2021 5:[address] Chest w Cont 06/14/2021 3:45 AM FINDINGS: Pleural spaces: The previously documented right pleural effusion is partially imaged on this study. Liver: Assessment of the liver is significantly limited without a gross mass. The liver was not measured precluding assessment for hepatomegaly. Gallbladder: The gallbladder wall thickness was not measured but appears visually normal in thickness. Shadowing stones normal are present in the gallbladder. There is no pericholecystic fluid or sludge. Sonographic Alvarez sign was not reported. Common bile duct: The common bile duct measures 0.39 cm. No stones. No significant dilation. Pancreas: The visualized portion of the pancreas is unremarkable. Right kidney: The right kidney measures 11.6 x 5.7 x 5.3 cm. Renal parenchymal echogenicity is normal. There is no hydronephrosis, nephrolithiasis or suspicious mass. Aorta: There is no aneurysmal dilatation of the aorta. IMPRESSION: 1. Cholelithiasis without evidence of cholecystitis. 2. Severely limited assessment of the liver. LOGAN CUETO | Final Radiology Report CONFIDENTIALITY STATEMENT This report is intended only for use by the referring physician, and only in accordance with law. If you received this in error, call [phone]. Page 2 of 2 3. Incidentally imaged right pleural effusion. Thank you for allowing us to participate in the care of your patient. Dictated and Authenticated by: Shavon Urena MD 06/14/2021 8:38 AM Central Time ([place] & [place]) - Re-Assessments/Exams Free Text/Narrative Re-Assessment/Exam: 06/14/21 08:00 Pt continues to vomit and have dry heaves. She reports improvement but not resolution of upper abdominal pain. CT Chest reported no PE, bibasilar atelectasis vs pneumonia, and a right pleural effusion. Pt denies cough or fever. Known gallstones, non-elevated T-bili, normal LFTs, and no elev. of amylase, or lipase. Plan to d/c pt home with Rx for nausea control, and pneumonia treatment with Rx Levaquin. Pt is instructed to f/u in clinic with her PCP 06/17/21 and to return to ER if worse at any time. Departure - Departure Time of Disposition: 11:44 Disposition: Home, Self-Care 01 Condition: Fair Clinical Impression: Upper abdominal pain, Pleural effusion on right Nausea & vomiting Qualifiers: Vomiting type: unspecified Vomiting Intractability: intractable Qualified Code(s): R11.2 - Nausea with vomiting, unspecified Pneumonia Qualifiers: Pneumonia type: due to unspecified organism Laterality: bilateral Lung location: lower lobe of lung Qualified Code(s): J18.9 - Pneumonia, unspecified organism Cholelithiasis Qualifiers: Cholelithiasis location: gallbladder Cholecystitis presence: without cho lecystitis Biliary obstruction: without biliary obstruction Qualified Code(s): K80.20 - Calculus of gallbladder without cholecystitis without obstruction - Discharge Information *PRESCRIPTION DRUG MONITORING PROGRAM REVIEWED*: Not Applicable *COPY OF PRESCRIPTION DRUG MONITORING REPORT IN PATIENT ANURADHA: Not Applicable Instructions: Cholelithiasis, [id number], Nausea and Vomiting, Adult, [id number], Pleural Effusion, Community-Acquired Pneumonia, Adult, [id number] Forms: ED Department Discharge Additional Instructions: Rx: Levaquin 750mg Rx: Zofran 4mg Rx: Promethazine 25mg suppositories Follow up at your primary clinic 06/17/21. Return to ER if worse at any time. <Neeta Jean - Last Filed: 06/18/21 03:14> ED HPI GENERAL MEDICAL PROBLEM - General Source of Information: Reports: Patient History Limitations: Reports: No Limitations - History of Present Illness INITIAL COMMENTS - FREE TEXT/NARRATIVE: ED with c/o RUQ pain all day, unable to tolerate tonight. Hx of similar, Has appoint for GB surgery on 07/02. Intermittent nausea no vomiting. No diarrhea. no fever, Occasional cough, non productive. no difficultly breathing. EMS report last meal Thursday was seafood/ fish at [facility]. 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 Musculoskeletal History: Reports: Osteoarthritis Neurological History: Reports: None Psychiatric History: Reports: None Endocrine/Metabolic History: Reports: Diabetes, Type II, Obesity/BMI 30+ Hematologic History: Reports: Anemia, Iron Deficiency Immunologic History: Reports: None Oncologic (Cancer) History: Reports: None Dermatologic History: Reports: None - Infectious Disease History Infectious Disease History: Reports: Human Papilloma Virus (HPV), Novel Coronavirus - Past Surgical History Head Surgeries/Procedures: Reports: None HEENT Surgical History: Reports: Other (See Below) Other HEENT Surgeries/Procedures: INNER EAR SUGERY Female Surgical History: Reports: Salpingo-Oophorectomy Social & Family History - Family History Family Medical History: No Pertinent Family History - Tobacco Use Tobacco Use Status *Q: Never Tobacco User - Caffeine Use Caffeine Use: Reports: Coffee - Recreational Drug Use Recreational Drug Use: No - Living Situation & Occupation Living situation: Reports: with Family Occupation: Unemployed ED ROS GENERAL - Review of Systems Review Of Systems: Comprehensive ROS is negative, except as noted in HPI. ED EXAM, GI/ABD - Physical Exam Exam: See Below Exam Limited By: No Limitations General Appearance: Alert, Moderate Distress Eyes: Bilateral: EOMI Ears: Normal External Exam, Hearing Grossly Normal Nose: Normal Inspection Throat/Mouth: Normal Inspection Head: Atraumatic, Normocephalic Neck: Normal Inspection Respiratory/Chest: No Respiratory Distress, Lungs Clear, Decreased Breath Sounds Cardiovascular: Normal Peripheral Pulses, Regular Rate, Rhythm GI/Abdominal Exam: No Distention, Tender (RUQ), Abnormal Bowel Sounds (decreased). No: Distended, Guarding, Rigid, Rebound Back Exam: Normal Inspection, Full Range of Motion Extremities: Normal Inspection Neurological: Alert, Oriented, Normal Cognition Psychiatric: Normal Affect Skin Exam: Warm, Dry, Intact, Normal Color Course - Vital Signs Last Recorded V/S: Last Vital Signs Temp 98.0 F 06/14/21 06:30 Pulse 64 06/14/21 06:30 Resp 18 06/14/21 06:30 BP 105/58 L 06/14/21 06:30 Pulse Ox 93 L 06/14/21 06:30 - Orders/Labs/Meds Labs: Laboratory Tests 06/14/21 06/14/21 06/14/21 Range/Units 00:38 00:38 00:38 WBC 10.5 H (5.0-10.0) 10^3/uL RBC 5.54 H (4.2-5.4) 10^6/uL Hgb 14.4 (12.0-16.0) g/dL Hct 43.4 (37.0-47.0) % MCV 78.3 L (80-100) fL MCH 26.0 L (27.0-34.0) pg MCHC 33.2 (33.0-35.0) g/dL Plt Count 330 (150-450) 10^3/uL Neut % (Auto) 56.3 (42.2-75.2) % Lymph % (Auto) 33.8 (20.5-50.1) % [place] % (Auto) 7.0 (2-8) % Eos % (Auto) 2.6 (1.0-3.0) % Baso % (Auto) 0.3 (0.0-1.0) % D-Dimer, Quantitative (0-400) ng/mL Sodium 137 (136-145) mmol/L Potassium 3.4 L (3.5-5.1) mmol/L Chloride 99 (98-107) mmol/L Carbon Dioxide 26 (21-32) mmol/L Anion Gap 15.4 H (7-13) mEq/L BUN 9 (7-18) mg/dL Creatinine 0.79 (0.55-1.02) mg/dL Est Cr Clr Drug Dosing TNP Estimated GFR (MDRD) > 60 BUN/Creatinine Ratio 11.4 (No establ ref range) Glucose 167 H (70-99) mg/dL POC Glucose (70-99) mg/dL Lactic Acid 2.3 H* (0.4-2.0) mmol/L Calcium 8.9 (8.5-10.1) mg/dL Total Bilirubin 0.9 (0.2-1.0) mg/dL AST 11 L (15-37) U/L ALT 12 L (14-59) U/L Alkaline Phosphatase 115 (46-116) U/L Troponin I High Sens (<=51) pg/mL B-Natriuretic Peptide (0-100) pg/ml Total Protein 8.9 H (6.4-8.2) g/dL Albumin 3.7 (3.4-5.0) g/dL Globulin 5.2 Albumin/Globulin Ratio 0.7 Amylase 17 L (25-115) U/L Lipase 46 L (73-393) U/L Urine Color (YELLOW) Urine Appearance (CLEAR) Urine pH (5.0-9.0) Ur Specific Underwood (1.005-1.030) Urine Protein (NEGATIVE) Urine Glucose (UA) (NEGATIVE) Urine Ketones (NEGATIVE) Urine Occult Blood (NEGATIVE) Urine Nitrite (NEGATIVE) Urine Bilirubin (NEGATIVE) Urine Urobilinogen (0.2-1.0) mg/dL Ur Leukocyte Esterase (NEGATIVE) SARS-CoV-2 RNA (JOSE MANUEL) (NEGATIVE) 06/14/21 06/14/21 06/14/21 Range/Units 00:38 00:38 02:08 WBC (5.0-10.0) 10^3/uL RBC (4.2-5.4) 10^6/uL Hgb (12.0-16.0) g/dL Hct (37.0-47.0) % MCV (80-100) fL MCH (27.0-34.0) pg MCHC (33.0-35.0) g/dL Plt Count (150-450) 10^3/uL Neut % (Auto) (42.2-75.2) % Lymph % (Auto) (20.5-50.1) % [place] % (Auto) (2-8) % Eos % (Auto) (1.0-3.0) % Baso % (Auto) (0.0-1.0) % D-Dimer, Quantitative 1080 H (0-400) ng/mL Sodium (136-145) mmol/L Potassium (3.5-5.1) mmol/L Chloride (98-107) mmol/L Carbon Dioxide (21-32) mmol/L Anion Gap (7-13) mEq/L BUN (7-18) mg/dL Creatinine (0.55-1.02) mg/dL Est Cr Clr Drug Dosing Estimated GFR (MDRD) BUN/Creatinine Ratio (No establ ref range) Glucose (70-99) mg/dL POC Glucose (70-99) mg/dL Lactic Acid (0.4-2.0) mmol/L Calcium (8.5-10.1) mg/dL Total Bilirubin (0.2-1.0) mg/dL AST (15-37) U/L ALT (14-59) U/L Alkaline Phosphatase (46-116) U/L Troponin I High Sens 6 (<=51) pg/mL B-Natriuretic Peptide 9 (0-100) pg/ml Total Protein (6.4-8.2) g/dL Albumin (3.4-5.0) g/dL Globulin Albumin/Globulin Ratio Amylase (25-115) U/L Lipase (73-393) U/L Urine Color Yellow (YELLOW) Urine Appearance Clear (CLEAR) Urine pH 7.5 (5.0-9.0) Ur Specific Underwood 1.020 (1.005-1.030) Urine Protein Negative (NEGATIVE) Urine Glucose (UA) Negative (NEGATIVE) Urine Ketones Negative (NEGATIVE) Urine Occult Blood Negative (NEGATIVE) Urine Nitrite Negative (NEGATIVE) Urine Bilirubin Negative (NEGATIVE) Urine Urobilinogen 0.2 (0.2-1.0) mg/dL Ur Leukocyte Esterase Negative (NEGATIVE) SARS-CoV-2 RNA (JOSE MANUEL) (NEGATIVE) 06/14/21 06/14/21 06/14/21 Range/Units 05:10 07:09 07:25 WBC 8.2 (5.0-10.0) 10^3/uL RBC 4.92 (4.2-5.4) 10^6/uL Hgb 12.9 D (12.0-16.0) g/dL Hct 39.4 (37.0-47.0) % MCV 80.1 (80-100) fL MCH 26.2 L (27.0-34.0) pg MCHC 32.7 L (33.0-35.0) g/dL Plt Count 271 (150-450) 10^3/uL Neut % (Auto) 76.7 H (42.2-75.2) % Lymph % (Auto) 16.6 L (20.5-50.1) % [place] % (Auto) 5.8 (2-8) % Eos % (Auto) 0.7 L (1.0-3.0) % Baso % (Auto) 0.2 (0.0-1.0) % D-Dimer, Quantitative (0-400) ng/mL Sodium (136-145) mmol/L Potassium (3.5-5.1) mmol/L Chloride (98-107) mmol/L Carbon Dioxide (21-32) mmol/L Anion Gap (7-13) mEq/L BUN (7-18) mg/dL Creatinine (0.55-1.02) mg/dL Est Cr Clr Drug Dosing Estimated GFR (MDRD) BUN/Creatinine Ratio (No establ ref range) Glucose (70-99) mg/dL POC Glucose 247 H (70-99) mg/dL Lactic Acid (0.4-2.0) mmol/L Calcium (8.5-10.1) mg/dL Total Bilirubin (0.2-1.0) mg/dL AST (15-37) U/L ALT (14-59) U/L Alkaline Phosphatase (46-116) U/L Troponin I High Sens (<=51) pg/mL B-Natriuretic Peptide (0-100) pg/ml Total Protein (6.4-8.2) g/dL Albumin (3.4-5.0) g/dL Globulin Albumin/Globulin Ratio Amylase (25-115) U/L Lipase (73-393) U/L Urine Color (YELLOW) Urine Appearance (CLEAR) Urine pH (5.0-9.0) Ur Specific Underwood (1.005-1.030) Urine Protein (NEGATIVE) Urine Glucose (UA) (NEGATIVE) Urine Ketones (NEGATIVE) Urine Occult Blood (NEGATIVE) Urine Nitrite (NEGATIVE) Urine Bilirubin (NEGATIVE) Urine Urobilinogen (0.2-1.0) mg/dL Ur Leukocyte Esterase (NEGATIVE) SARS-CoV-2 RNA (JOSE MANUEL) Negative (NEGATIVE) 11/05/21 11/05/21 Range/Units 07:25 07:25 WBC (5.0-10.0) 10^3/uL RBC (4.2-5.4) 10^6/uL Hgb (12.0-16.0) g/dL Hct (37.0-47.0) % MCV (80-100) fL MCH (27.0-34.0) pg MCHC (33.0-35.0) g/dL Plt Count (150-450) 10^3/uL Neut % (Auto) (42.2-75.2) % Lymph % (Auto) (20.5-50.1) % [place] % (Auto) (2-8) % Eos % (Auto) (1.0-3.0) % Baso % (Auto) (0.0-1.0) % D-Dimer, Quantitative (0-400) ng/mL Sodium 137 (136-145) mmol/L Potassium 3.9 (3.5-5.1) mmol/L Chloride 102 (98-107) mmol/L Carbon Dioxide 25 (21-32) mmol/L Anion Gap 13.9 H (7-13) mEq/L BUN 9 (7-18) mg/dL Creatinine 0.75 (0.55-1.02) mg/dL Est Cr Clr Drug Dosing 82.48 Estimated GFR (MDRD) > 60 BUN/Creatinine Ratio 12.0 (No establ ref range) Glucose 274 H (70-99) mg/dL POC Glucose (70-99) mg/dL Lactic Acid 1.9 (0.4-2.0) mmol/L Calcium 7.8 L (8.5-10.1) mg/dL Total Bilirubin 0.9 (0.2-1.0) mg/dL AST 10 L (15-37) U/L ALT 10 L (14-59) U/L Alkaline Phosphatase 93 (46-116) U/L Troponin I High Sens (<=51) pg/mL B-Natriuretic Peptide (0-100) pg/ml Total Protein 7.5 (6.4-8.2) g/dL Albumin 3.1 L (3.4-5.0) g/dL Globulin 4.4 Albumin/Globulin Ratio 0.70 Amylase 12 L (25-115) U/L Lipase (73-393) U/L Urine Color (YELLOW) Urine Appearance (CLEAR) Urine pH (5.0-9.0) Ur Specific [place]wood (1.005-1.030) Urine Protein (NEGATIVE) Urine Glucose (UA) (NEGATIVE) Urine Ketones (NEGATIVE) Urine Occult Blood (NEGATIVE) Urine Nitrite (NEGATIVE) Urine Bilirubin (NEGATIVE) Urine Urobilinogen (0.2-1.0) mg/dL Ur Leukocyte Esterase (NEGATIVE) SARS-CoV-2 RNA (JOSE MANUEL) (NEGATIVE) Meds: Medications Discontinued Medications Generic Name Dose Route Start Last Admin Trade Name Freq PRN Reason Stop Dose Admin Famotidine 20 mg 06/14/21 07:11 06/14/21 07:20 Famotidine 20 Mg/2 Ml Sdv IVPUSH 06/14/21 07:12 20 mg ONETIME ONE Administration Hydromorphone HCl 1 mg 06/14/21 00:35 06/14/21 00:43 Hydromorphone 1 Mg/Ml Syringe IVPUSH 06/14/21 00:36 1 mg ONETIME ONE Administration Hydromorphone HCl 1 mg 06/14/21 01:18 06/14/21 01:24 Hydromorphone 1 Mg/Ml Syringe IVPUSH 06/14/21 01:19 1 mg ONETIME ONE Administration Hydromorphone HCl 1 mg 06/14/21 07:09 06/14/21 07:20 Hydromorphone 1 Mg/Ml Syringe IVPUSH 06/14/21 07:10 1 mg ONETIME ONE Administration Sodium Chloride 1,000 mls @ 999 mls/hr 06/14/21 00:35 06/14/21 00:42 Normal Saline IV 06/14/21 01:35 999 mls/hr .BOLUS ONE Administration Azithromycin 500 mg/ Sodium 250 mls @ 250 mls/hr 06/14/21 06:10 06/14/21 07:02 Chloride IV 06/14/21 07:09 250 mls/hr ONETIME ONE Administration Ceftriaxone Sodium 1 gm/ 50 mls @ 100 mls/hr 06/14/21 06:10 06/14/21 06:32 Sodium Chloride IV 06/14/21 06:39 100 mls/hr ONETIME ONE Administration Iopamidol 100 ml 06/14/21 03:12 Iopamidol 755 Mg/Ml 100 Ml Bottle IVPUSH 06/14/21 03:13 ONETIME ONE Metoclopramide HCl 10 mg 06/14/21 02:05 06/14/21 02:14 Metoclopramide 10 Mg/2 Ml Sdv IVPUSH 06/14/21 02:06 10 mg ONETIME ONE Administration Ondansetron HCl 4 mg 06/14/21 00:35 06/14/21 00:42 Ondansetron 4 Mg/2 Ml Sdv IVPUSH 06/14/21 00:36 4 mg ONETIME ONE Administration Ondansetron HCl 4 mg 06/14/21 03:41 06/14/21 03:48 Ondansetron 4 Mg/2 Ml Sdv IVPUSH 06/14/21 03:42 4 mg ONETIME ONE Administration Ondansetron HCl Confirm 06/14/21 03:41 06/14/21 05:24 Ondansetron 4 Mg/2 Ml Sdv Administered 06/14/21 03:42 Not Given Dose 4 mg .ROUTE .STK-MED ONE Ondansetron HCl 4 mg 06/14/21 07:09 06/14/21 07:21 Ondansetron 4 Mg/2 Ml Sdv IV 06/14/21 07:10 4 mg ONETIME ONE Administration Promethazine HCl 25 mg 06/14/21 08:00 06/14/21 08:06 Promethazine 25 Mg/Ml Sdv IM 06/14/21 08:01 25 mg ONETIME ONE Administration - Re-Assessments/Exams Free Text/Narrative Re-Assessment/Exam: 06/14/21 06:54 Pain improved following 2mg dilaudid. IV abx infusing. Care tx to Dr Turner."
[2021-06-14] MEDS ORDERED: Ondansetron 4 MG/2 ML SDV IV ONE (07:09)
[2021-06-14] MEDS ORDERED: Famotidine 20 MG/2 ML SDV IVPUSH ONE (07:11)
[2021-06-14] MEDS ORDERED: Promethazine 25 MG/ML SDV IM ONE (08:00)
--- NOTE | 2021-06-14 08:39 | US ---
PROCEDURE INFORMATION: Exam: US Abdomen, Limited; Right Upper Quadrant Exam date and time: 06/14/2021 8:02 AM Age: 56 years old Clinical indication: Abdominal pain; Acute; Additional info: Ruq pain, vomiting, HX gallstones TECHNIQUE: Imaging protocol: US abdomen. Real time ultrasound with image documentation. Limited exam focused on the right upper quadrant. COMPARISON: 1. CT Abdomen Pelvis w Cont 05/17/2021 5:[address] Chest w Cont 06/14/2021 3:45 AM FINDINGS: Pleural spaces: The previously documented right pleural effusion is partially imaged on this study. Liver: Assessment of the liver is significantly limited without a gross mass. The liver was not measured precluding assessment for hepatomegaly. Gallbladder: The gallbladder wall thickness was not measured but appears visually normal in thickness. Shadowing stones normal are present in the gallbladder. There is no pericholecystic fluid or sludge. Sonographic Alvarez sign was not reported. Common bile duct: The common bile duct measures 0.39 cm. No stones. No significant dilation. Pancreas: The visualized portion of the pancreas is unremarkable. Right kidney: The right kidney measures 11.6 x 5.7 x 5.3 cm. Renal parenchymal echogenicity is normal. There is no hydronephrosis, nephrolithiasis or suspicious mass. Aorta: There is no aneurysmal dilatation of the aorta. IMPRESSION: 1. Cholelithiasis without evidence of cholecystitis. 2. Severely limited assessment of the liver. 3. Incidentally imaged right pleural effusion.
[2021-06-14 08:47] LABS: ANION GAP 13.9 mEq/L (7-13); CHLORIDE,CL 102 mmol/L (98-107); SODIUM,NA 137 mmol/L (136-145)
== END 2021-06-14 12:02 | disposition home or self-care (01) ==
LOC: DL.ED 00:31
DX: K80.20 Calculus of gallbladder without cholecystitis without obstruction (principal); J18.9 Pneumonia, unspecified organism; R11.2 Nausea with vomiting, unspecified; J90 Pleural effusion, not elsewhere classified; Z88.8 Allergy status to other drugs, medicaments and biological substances
CPT/HCPCS: 36415; 71260; 76705; 80053; 81003; 82150; 82272; 82947; 83605; 83690; 83880; 84484; 85025; 85379; 87040; 87635; 96365; 96367; 96372; 96375; 96376; 99284; J0456; J0696; J1170; J2405; J2550; J2765; J3490; J7030; J7050; U0002

== ENCOUNTER 2022-04-04 11:21 | Emergency (ER) | payer MEDICAID ==
[2022-04-04] MEDS ORDERED: Sodium Chloride 0.9% 10 ML Syringe FLUSH PRN (11:39)
[2022-04-04 12:09] VITALS: BP 170/73; PULSE 47
[2022-04-04 12:41] LABS: ANION GAP 11.5 mEq/L (7-13); CHLORIDE,CL 105 mmol/L (98-107); SODIUM,NA 139 mmol/L (136-145)
[2022-04-04 12:45] LABS: ESTIMATED GFR 88 mL/min (>=60)
[2022-04-04 14:22] LABS: CORONAVIRUS COVID-19 NAA NEGATIVE (NEGATIVE)
== END 2022-04-04 15:22 | disposition home or self-care (01) ==
LOC: DL.ED 11:21
DX: R42 Dizziness and giddiness (principal); I10 Essential (primary) hypertension; E11.9 Type 2 diabetes mellitus without complications; E66.9 Obesity, unspecified; Z68.30 Body mass index [BMI] 30.0-30.9, adult; Z88.8 Allergy status to other drugs, medicaments and biological substances; Z79.4 Long term (current) use of insulin; Z20.822 Contact with and (suspected) exposure to COVID-19
CPT/HCPCS: 0240U; 36415; 71045; 80053; 80307; 81001; 82150; 83690; 84443; 84484; 85025; 85610; 85730; 87086; 93005; 93010; 99284; 99285; J3490

== ENCOUNTER 2023-01-19 11:11 | Emergency (ER) | payer MEDICAID ==
[2023-01-19] MEDS ORDERED: Sodium Chloride 0.9% 10 ML Syringe FLUSH PRN (11:15)
[2023-01-19] MEDS ORDERED: HYDROmorphone 1 MG/ML Syringe IVPUSH ONE ×2 (11:15→12:32)
[2023-01-19] MEDS ORDERED: Ondansetron 4 MG/2 ML SDV IV ONE ×2 (11:15→12:32)
[2023-01-19] MEDS ORDERED: Sodium Chloride 0.9% 1,000 ML IV ONE (11:15)
[2023-01-19 11:17] VITALS: BP 193/83; PULSE 61
[2023-01-19 11:38] LABS: BASOPHILS PERCENT AUTO 0.3 % (0.0-1.0); EOSINOPHILS PERCENT AUTO 4.4 % (1.0-3.0); HEMATOCRIT 39.6 % (37.0-47.0); HEMOGLOBIN 13.4 g/dL (12.0-16.0); MEAN CORPUSCULAR HEMOGLOBIN 27.4 pg (27.0-34.0); MEAN CORPUSCULAR HGB CONC 33.8 g/dL (33.0-35.0); MONOCYTES PERCENT AUTO 6.2 % (2-8); NEUTROPHILS PERCENT AUTO 49.1 % (42.2-75.2); PLATELET COUNT,PLT 235 10^3/uL (150-450); RED BLOOD CELL COUNT 4.89 10^6/uL (4.2-5.4); WHITE BLOOD CELL COUNT,WBC 7.9 10^3/uL (5.0-10.0)
[2023-01-19 11:59] LABS: A/G RATIO 0.8; ALANINE AMINOTRANSFERASE,ALT 11 U/L (14-59); ALBUMIN 3.5 g/dL (3.4-5.0); ALKALINE PHOSPHATASE 103 U/L (46-116); AMYLASE 24 U/L (25-115); ANION GAP 15.4 mEq/L (7-13); ASPARTATE AMNIOTRANSFERASE,AST 17 U/L (15-37); BLOOD UREA NITROGEN,BUN 6 mg/dL (7-18); CALCIUM 8.8 mg/dL (8.5-10.1); CARBON DIOXIDE,CO2 25 mmol/L (21-32); CHLORIDE,CL 104 mmol/L (98-107); CREATININE 0.75 mg/dL (0.55-1.02); EST CRCL DRUG DOSING (CG) 72.68 mL/min; ESTIMATED GFR 92 mL/min (>=60); GLUCOSE RANDOM 103 mg/dL (70-99); LIPASE 57 U/L (73-393); POTASSIUM,K 3.4 mmol/L (3.5-5.1); PROTEIN TOTAL,TP 7.7 g/dL (6.4-8.2); SODIUM,NA 141 mmol/L (136-145)
[2023-01-19] MEDS ORDERED: Ketorolac 30 MG/ML SDV IVPUSH ONE (12:32)
[2023-01-19] MEDS ORDERED: Promethazine 25 MG/ML SDV IM ONE (12:50)
[2023-01-19 13:02] LABS: APPEARANCE,URINE CLEAR (CLEAR); BILIRUBIN,URINE NEGATIVE (NEGATIVE); COLOR,URINE YELLOW (YELLOW); GLUCOSE,URINE NEGATIVE (NEGATIVE); KETONES,URINE NEGATIVE (NEGATIVE); LEUKOCYTE ESTERASE,URINE TRACE (NEGATIVE); NITRITE,URINE NEGATIVE (NEGATIVE); OCCULT BLOOD,URINE NEGATIVE (NEGATIVE); PH,URINE 7.5 (5.0-9.0); PROTEIN,URINE NEGATIVE (NEGATIVE); UROBILINOGEN,URINE 0.2 mg/dL (0.2-1.0)
[2023-01-19 13:15] LABS: BACTERIA,URINE RARE /HPF (0-FEW/HPF); EPITHELIAL CELLS,URINE RARE /HPF (NOT SEEN); MUCUS,URINE NOT SEEN /LPF (NOT SEEN); RBC,URINE NOT SEEN /HPF (0-5); WBC,URINE 0-5 /HPF (0-5/HPF)
== END 2023-01-19 14:18 ==
LOC: DL.ED 11:11
DX: K80.00 Calculus of gallbladder with acute cholecystitis without obstruction (principal); I10 Essential (primary) hypertension; J45.909 Unspecified asthma, uncomplicated; E11.9 Type 2 diabetes mellitus without complications; E66.9 Obesity, unspecified; Z68.32 Body mass index [BMI] 32.0-32.9, adult; Z88.8 Allergy status to other drugs, medicaments and biological substances; Z86.16 Personal history of COVID-19; Z79.4 Long term (current) use of insulin
CPT/HCPCS: 36415; 74176; 80053; 81001; 82150; 83605; 83690; 84145; 85025; 87040; 87086; 96361; 96372; 96374; 96375; 96376; 99284; 99285-25; J1170; J1885; J2405; J2550; J3490; J7030

== ENCOUNTER 2023-08-21 15:32 | Emergency (ER) | payer MEDICAID ==
[2023-08-21 15:55] LABS: BASOPHILS PERCENT AUTO 0.3 % (0.0-1.0); EOSINOPHILS PERCENT AUTO 2.5 % (1.0-3.0); HEMATOCRIT 39.2 % (37.0-47.0); HEMOGLOBIN 13.4 g/dL (12.0-16.0); MEAN CORPUSCULAR HEMOGLOBIN 27.6 pg (27.0-34.0); MEAN CORPUSCULAR HGB CONC 34.2 g/dL (33.0-35.0); MEAN CORPUSCULAR VOLUME 80.8 fL (80-100); NEUTROPHILS PERCENT AUTO 55.2 % (42.2-75.2); PLATELET COUNT,PLT 222 10^3/uL (150-450); RED BLOOD CELL COUNT 4.85 10^6/uL (4.2-5.4)
[2023-08-21 16:23] LABS: A/G RATIO 0.8; ALANINE AMINOTRANSFERASE,ALT 12 U/L (14-59); ALBUMIN 3.4 g/dL (3.4-5.0); ALKALINE PHOSPHATASE 113 U/L (46-116); ANION GAP 15.8 mEq/L (7-13); ASPARTATE AMNIOTRANSFERASE,AST 11 U/L (15-37); BLOOD UREA NITROGEN,BUN 7 mg/dL (7-18); BUN/CREATININE RATIO 9.6 (No establ ref range); CALCIUM 8.7 mg/dL (8.5-10.1); CARBON DIOXIDE,CO2 23 mmol/L (21-32); CHLORIDE,CL 103 mmol/L (98-107); CREATININE 0.73 mg/dL (0.55-1.02); EST CRCL DRUG DOSING (CG) 73.74 mL/min; GLUCOSE RANDOM 164 mg/dL (70-99); LIPASE 26 U/L (16-77); POTASSIUM,K 3.8 mmol/L (3.5-5.1); PROTEIN TOTAL,TP 7.6 g/dL (6.4-8.2); SODIUM,NA 138 mmol/L (136-145)
[2023-08-21 16:24] LABS: ESTIMATED GFR 94 mL/min (>=60); ETHANOL BLOOD MEDICAL < 3 mg/dL (0)
[2023-08-21 16:29] LABS: INR 0.9 (0.9-1.2); PROTHROMBIN TIME 9.5 SEC (9.0-12.0)
[2023-08-21 16:34] LABS: B-TYPE NATRIURETIC PEPTIDE,BNP 11 pg/ml (0-100)
[2023-08-21 16:36] LABS: CORONAVIRUS COVID-19 NAA NEGATIVE (NEGATIVE); INFLUENZA A NAA NEGATIVE (NEGATIVE); INFLUENZA B NAA NEGATIVE (NEGATIVE); RESPIRATORY SYNCYTIAL VIR NAA NEGATIVE (NEGATIVE)
[2023-08-21 17:14] VITALS: BP 130/55; PULSE 56
== END 2023-08-21 17:20 | disposition home or self-care (01) ==
LOC: DL.ED 15:32
DX: R06.02 Shortness of breath (principal); R07.9 Chest pain, unspecified; I10 Essential (primary) hypertension; J45.909 Unspecified asthma, uncomplicated; E11.9 Type 2 diabetes mellitus without complications; E66.9 Obesity, unspecified; Z86.16 Personal history of COVID-19; Z88.5 Allergy status to narcotic agent; Z79.4 Long term (current) use of insulin; Z79.899 Other long term (current) drug therapy; Z68.32 Body mass index [BMI] 32.0-32.9, adult
CPT/HCPCS: 0241U; 36415; 71045; 80053; 80307; 83690; 83880; 84484; 85025; 85379; 85610; 85730; 93005; 93010; 99284; 99285

== ENCOUNTER 2024-02-22 20:31 | Emergency (ER) | payer MEDICAID ==
[2024-02-22 20:46] VITALS: BP 179/85; PULSE 56
[2024-02-22] MEDS: Ondansetron 4 MG/2 ML SDV IVPUSH ONE (20:59)
[2024-02-22] MEDS: Ketorolac 30 MG/ML SDV IVPUSH ONE (21:01)
[2024-02-22 21:02] LABS: BASOPHILS PERCENT AUTO 0.4 % (0.0-1.0); EOSINOPHILS PERCENT AUTO 3.3 % (1.0-3.0); HEMATOCRIT 39.5 % (37.0-47.0); HEMOGLOBIN 13.1 g/dL (12.0-16.0); LYMPHOCYTES PERCENT AUTO 44.6 % (20.5-50.1); MEAN CORPUSCULAR HEMOGLOBIN 26.8 pg (27.0-34.0); MEAN CORPUSCULAR HGB CONC 33.2 g/dL (33.0-35.0); MEAN CORPUSCULAR VOLUME 80.9 fL (80-100); MONOCYTES PERCENT AUTO 7.6 % (2-8); NEUTROPHILS PERCENT AUTO 44.1 % (42.2-75.2); PLATELET COUNT,PLT 258 10^3/uL (150-450); RED BLOOD CELL COUNT 4.88 10^6/uL (4.2-5.4); WHITE BLOOD CELL COUNT,WBC 7.3 10^3/uL (5.0-10.0)
[2024-02-22] MEDS: Sodium Chloride 0.9% 1,000 ML IV ONE (21:05)
[2024-02-22 21:08] LABS: APPEARANCE,URINE CLEAR (CLEAR); BILIRUBIN,URINE NEGATIVE (NEGATIVE); COLOR,URINE YELLOW (YELLOW); GLUCOSE,URINE NEGATIVE (NEGATIVE); KETONES,URINE NEGATIVE (NEGATIVE); LEUKOCYTE ESTERASE,URINE NEGATIVE (NEGATIVE); NITRITE,URINE NEGATIVE (NEGATIVE); OCCULT BLOOD,URINE TRACE-INTACT (NEGATIVE); PH,URINE 7.5 (5.0-9.0); PROTEIN,URINE NEGATIVE (NEGATIVE); UROBILINOGEN,URINE 0.2 mg/dL (0.2-1.0)
[2024-02-22 21:10] LABS: AMPHETAMINES,URINE NEGATIVE (NEGATIVE); BARBITURATES,URINE NEGATIVE (NEGATIVE); BENZODIAZEPINE,URINE NEGATIVE (NEGATIVE); MDMA (ECSTASY), URINE NEGATIVE (NEGATIVE); METHADONE,URINE NEGATIVE (NEGATIVE); METHAMPHETAMINES,URINE NEGATIVE (NEGATIVE); OPIATES,URINE NEGATIVE (NEGATIVE); OXYCODONE,URINE NEGATIVE (NEGATIVE); PHENCYCLIDINE,URINE NEGATIVE (NEGATIVE); TCA,URINE NEGATIVE (NEGATIVE)
[2024-02-22 21:19] LABS: BACTERIA,URINE FEW /HPF (0-FEW/HPF); EPITHELIAL CELLS,URINE FEW /HPF (NOT SEEN); WBC,URINE 0-5 /HPF (0-5/HPF)
[2024-02-22 21:24] LABS: A/G RATIO 0.8; ALBUMIN 3.6 g/dL (3.4-5.0); ANION GAP 12.5 mEq/L (7-13); BILIRUBIN TOTAL 0.6 mg/dL (0.2-1.0); BUN/CREATININE RATIO 7.6 (No establ ref range); CALCIUM 8.9 mg/dL (8.5-10.1); CREATININE 0.79 mg/dL (0.55-1.02); EST CRCL DRUG DOSING (CG) 68.14 mL/min; POTASSIUM,K 3.5 mmol/L (3.5-5.1); PROTEIN TOTAL,TP 8.1 g/dL (6.4-8.2)
[2024-02-22 21:30] LABS: LACTIC ACID 1.4 mmol/L (0.4-2.0)
[2024-02-22] MEDS: Iopamidol 612 MG/ML 100 ML Bottle IVPUSH ONE (21:39)
[2024-02-22] MEDS: Acetaminophen/HYDROcodone 325-10 MG Tab PO ONE (22:53)
== END 2024-02-22 23:01 | disposition home or self-care (01) ==
LOC: DL.ED 20:31
DX: K21.9 Gastro-esophageal reflux disease without esophagitis (principal); I10 Essential (primary) hypertension; E11.9 Type 2 diabetes mellitus without complications; E66.9 Obesity, unspecified; Z86.16 Personal history of COVID-19; Z79.4 Long term (current) use of insulin; Z88.6 Allergy status to analgesic agent; Z79.1 Long term (current) use of non-steroidal anti-inflammatories (NSAID); Z68.32 Body mass index [BMI] 32.0-32.9, adult
CPT/HCPCS: 36415; 74177; 80053; 80305; 81001; 83605; 83690; 85025; 96361; 96374; 96375; 99285; A9270; J1885; J2405; J7030; Q9967

== ENCOUNTER 2024-02-24 06:28 | Observation (INO) | payer MEDICAID ==
[2024-02-24] MEDS: Famotidine 20 MG/2 ML SDV IVPUSH ONE (07:40)
[2024-02-24] MEDS: Ondansetron 4 MG/2 ML SDV IVPUSH ONE (07:40)
[2024-02-24 07:49] LABS: BASOPHILS PERCENT AUTO 0.2 % (0.0-1.0); EOSINOPHILS PERCENT AUTO 2.5 % (1.0-3.0); HEMATOCRIT 36.8 % (37.0-47.0); HEMOGLOBIN 12.1 g/dL (12.0-16.0); MEAN CORPUSCULAR HEMOGLOBIN 26.7 pg (27.0-34.0); MEAN CORPUSCULAR HGB CONC 32.9 g/dL (33.0-35.0); MEAN CORPUSCULAR VOLUME 81.1 fL (80-100); MONOCYTES PERCENT AUTO 6.7 % (2-8); NEUTROPHILS PERCENT AUTO 58.6 % (42.2-75.2); PLATELET COUNT,PLT 239 10^3/uL (150-450); RED BLOOD CELL COUNT 4.54 10^6/uL (4.2-5.4); WHITE BLOOD CELL COUNT,WBC 5.6 10^3/uL (5.0-10.0)
[2024-02-24] MEDS: Sodium Chloride 0.9% 1,000 ML IV ONE ×2 (07:49→09:03)
[2024-02-24] MEDS: Iopamidol 612 MG/ML 100 ML Bottle IVPUSH ONE (07:54)
[2024-02-24 08:13] LABS: ALANINE AMINOTRANSFERASE,ALT 10 U/L (14-59); ALBUMIN 3.3 g/dL (3.4-5.0); ALKALINE PHOSPHATASE 87 U/L (46-116); ANION GAP 16.9 mEq/L (7-13); ASPARTATE AMNIOTRANSFERASE,AST 13 U/L (15-37); BLOOD UREA NITROGEN,BUN 7 mg/dL (7-18); BUN/CREATININE RATIO 9.3 (No establ ref range); CALCIUM 8.6 mg/dL (8.5-10.1); CARBON DIOXIDE,CO2 23 mmol/L (21-32); CHLORIDE,CL 108 mmol/L (98-107); CREATININE 0.75 mg/dL (0.55-1.02); GLUCOSE RANDOM 76 mg/dL (70-99); LIPASE 22 U/L (16-77); MAGNESIUM 2.1 mg/dL (1.8-2.4); POTASSIUM,K 3.9 mmol/L (3.5-5.1); PROTEIN TOTAL,TP 7.4 g/dL (6.4-8.2); SODIUM,NA 144 mmol/L (136-145)
[2024-02-24 08:14] LABS: C-REACTIVE PROTEIN < 0.50 ng/dL (<=0.50); ESTIMATED GFR 91 mL/min (>=60); ETHANOL BLOOD MEDICAL < 3 mg/dL (0); LACTIC ACID 0.7 mmol/L (0.4-2.0)
[2024-02-24 08:34] LABS: APPEARANCE,URINE CLEAR (CLEAR); BILIRUBIN,URINE NEGATIVE (NEGATIVE); COLOR,URINE YELLOW (YELLOW); GLUCOSE,URINE NEGATIVE (NEGATIVE); KETONES,URINE NEGATIVE (NEGATIVE); LEUKOCYTE ESTERASE,URINE TRACE (NEGATIVE); NITRITE,URINE NEGATIVE (NEGATIVE); OCCULT BLOOD,URINE TRACE-LYSED (NEGATIVE); PH,URINE 7.5 (5.0-9.0); PROTEIN,URINE NEGATIVE (NEGATIVE); UROBILINOGEN,URINE 0.2 mg/dL (0.2-1.0)
[2024-02-24] MEDS: Glucose Gel 15 GM in 37.5 GM Tube PO ONE (08:35)
[2024-02-24 08:37] LABS: BENZODIAZEPINE,URINE NEGATIVE (NEGATIVE); MDMA (ECSTASY), URINE NEGATIVE (NEGATIVE); METHADONE,URINE NEGATIVE (NEGATIVE); METHAMPHETAMINES,URINE NEGATIVE (NEGATIVE); OPIATES,URINE NEGATIVE (NEGATIVE); TCA,URINE NEGATIVE (NEGATIVE)
[2024-02-24 08:38] LABS: AMPHETAMINES,URINE NEGATIVE (NEGATIVE); BARBITURATES,URINE NEGATIVE (NEGATIVE); OXYCODONE,URINE NEGATIVE (NEGATIVE); PHENCYCLIDINE,URINE NEGATIVE (NEGATIVE)
[2024-02-24 09:03] LABS: WBC,URINE 0-5 /HPF (0-5/HPF)
[2024-02-24] MEDS: 50% Dextrose in Water 50 ML Syringe IVPUSH ONE (09:03)
[2024-02-24 09:04] LABS: BACTERIA,URINE FEW /HPF (0-FEW/HPF); EPITHELIAL CELLS,URINE FEW /HPF (NOT SEEN); MUCUS,URINE FEW /LPF (NOT SEEN)
[2024-02-24] MEDS ORDERED: Ondansetron 4 MG/2 ML SDV IVPUSH PRN (10:52)
[2024-02-24] MEDS ORDERED: Acetaminophen 325 MG Tab PO PRN (10:52)
[2024-02-24] MEDS ORDERED: Acetaminophen/oxyCODONE 325-5 MG Tab PO PRN (10:52)
[2024-02-24] MEDS ORDERED: hydrALAZINE 20 MG/ML SDV IVPUSH PRN (10:52)
[2024-02-24] MEDS ORDERED: Sennosides/Docusate Sodium 50-8.6 MG Tab PO PRN (10:52)
[2024-02-24] MEDS ORDERED: Metoprolol Tartrate 5 MG/5 ML SDV IVPUSH PRN (10:52)
[2024-02-24] MEDS ORDERED: Polyethylene Glycol 3350 Powder 17 GM Packet PO PRN (10:52)
[2024-02-24] MEDS ORDERED: Albuterol/Ipratropium 3.0-0.5 MG/3 ML Neb Soln NEB PRN (10:52)
[2024-02-24] MEDS ORDERED: Magnesium Hydroxide 400 MG/5 ML Susp 30 ML Cup PO PRN (10:52)
[2024-02-24] MEDS ORDERED: Temazepam 15 MG Cap PO PRN (10:52)
[2024-02-24] MEDS ORDERED: Ketorolac 30 MG/ML SDV IVPUSH PRN (10:52)
[2024-02-24] MEDS ORDERED: Glucagon,Human Recombinant 1 MG Vial IM PRN (10:55)
[2024-02-24] MEDS ORDERED: 50% Dextrose in Water 50 ML Syringe IVPUSH PRN (10:55)
[2024-02-24] MEDS: Insulin Lispro 100 Units/ML 3 ML Vial SUBCUT SCH (12:59)
[2024-02-24] MEDS: Empagliflozin 10 MG Tab PO ONE (20:33)
[2024-02-25 06:18] LABS: BASOPHILS PERCENT AUTO 0.5 % (0.0-1.0); EOSINOPHILS PERCENT AUTO 5.5 % (1.0-3.0); HEMATOCRIT 38.4 % (37.0-47.0); HEMOGLOBIN 12.4 g/dL (12.0-16.0); LYMPHOCYTES PERCENT AUTO 35.2 % (20.5-50.1); MEAN CORPUSCULAR HEMOGLOBIN 26.8 pg (27.0-34.0); MEAN CORPUSCULAR HGB CONC 32.3 g/dL (33.0-35.0); MEAN CORPUSCULAR VOLUME 82.9 fL (80-100); MONOCYTES PERCENT AUTO 8.4 % (2-8); NEUTROPHILS PERCENT AUTO 50.4 % (42.2-75.2); PLATELET COUNT,PLT 244 10^3/uL (150-450); RED BLOOD CELL COUNT 4.63 10^6/uL (4.2-5.4); WHITE BLOOD CELL COUNT,WBC 4.4 10^3/uL (5.0-10.0)
[2024-02-25 06:35] LABS: ANION GAP 12.7 mEq/L (7-13); BILIRUBIN TOTAL 1.2 mg/dL (0.2-1.0); CALCIUM 8.4 mg/dL (8.5-10.1); CREATININE 0.75 mg/dL (0.55-1.02); EST CRCL DRUG DOSING (CG) 74.67 mL/min; POTASSIUM,K 3.7 mmol/L (3.5-5.1); PROTEIN TOTAL,TP 7.1 g/dL (6.4-8.2)
[2024-02-25 06:38] LABS: A/G RATIO 0.73
[2024-02-25] MEDS: Empagliflozin 10 MG Tab PO SCH (08:31)
[2024-02-25] MEDS: Omeprazole 20 MG Cap.CR PO SCH (08:31)
[2024-02-25 11:33] VITALS: BP 137/61; PULSE 42
== END 2024-02-25 13:50 | disposition home or self-care (01) ==
LOC: DL.ED 06:28 → DL.MS 08:50
PROVIDERS: ADMIT Internal Medicine; ATTEND Internal Medicine
DX: A08.4 Viral intestinal infection, unspecified (principal); I10 Essential (primary) hypertension; E11.9 Type 2 diabetes mellitus without complications; J45.909 Unspecified asthma, uncomplicated; E78.5 Hyperlipidemia, unspecified; Z87.891 Personal history of nicotine dependence; Z79.4 Long term (current) use of insulin; Z79.899 Other long term (current) drug therapy; Z88.6 Allergy status to analgesic agent
CPT/HCPCS: 36415; 74177; 80053; 80305; 80307; 81001; 82947; 83036; 83605; 83690; 83735; 84484; 85025; 86140; 87086; 93005; A9270; J2405; J3490; J7030; Q9967; 96361; 96374; 96375; 99222; 99238; 99285-25; G0378

== ENCOUNTER 2024-04-03 14:36 | Emergency (ER) | payer MEDICAID ==
[2024-04-03 14:50] LABS: BASOPHILS PERCENT AUTO 0.3 % (0.0-1.0); EOSINOPHILS PERCENT AUTO 2.6 % (1.0-3.0); HEMATOCRIT 39.3 % (37.0-47.0); HEMOGLOBIN 13.1 g/dL (12.0-16.0); LYMPHOCYTES PERCENT AUTO 38.9 % (20.5-50.1); MEAN CORPUSCULAR HEMOGLOBIN 26.4 pg (27.0-34.0); MEAN CORPUSCULAR HGB CONC 33.3 g/dL (33.0-35.0); MEAN CORPUSCULAR VOLUME 79.1 fL (80-100); MONOCYTES PERCENT AUTO 6.7 % (2-8); NEUTROPHILS PERCENT AUTO 51.5 % (42.2-75.2); PLATELET COUNT,PLT 239 10^3/uL (150-450); RED BLOOD CELL COUNT 4.97 10^6/uL (4.2-5.4)
[2024-04-03] MEDS: Nitroglycerin 0.4 MG Tab.SL SL ONE (14:59)
[2024-04-03] MEDS: Aspirin 81 MG Tab.Chew PO ONE (14:59)
[2024-04-03] MEDS: Sodium Chloride 0.9% 1,000 ML IV SCH (14:59)
[2024-04-03 15:00] VITALS: BP 155/63
[2024-04-03] MEDS: Famotidine 20 MG/2 ML SDV IVPUSH ONE (15:00)
[2024-04-03 15:04] VITALS: PULSE 70
[2024-04-03 15:12] LABS: A/G RATIO 0.8; ALBUMIN 3.7 g/dL (3.4-5.0); ANION GAP 16.3 mEq/L (7-13); BILIRUBIN TOTAL 0.9 mg/dL (0.2-1.0); BUN/CREATININE RATIO 7.2 (No establ ref range); CALCIUM 9.2 mg/dL (8.5-10.1); CREATININE 0.83 mg/dL (0.55-1.02); EST CRCL DRUG DOSING (CG) 62.24 mL/min; POTASSIUM,K 3.3 mmol/L (3.5-5.1); PROTEIN TOTAL,TP 8.5 g/dL (6.4-8.2)
[2024-04-03 16:13] LABS: INR 0.9 (0.9-1.2); PROTHROMBIN TIME 9.8 SEC (9.0-12.0); PTT,PARTIAL THROMBOPLSTIN TIME 24.8 SEC (22.0-34.0)
[2024-04-03] MEDS: Potassium Chloride 10 MEQ Tab.ER PO ONE (16:23)
== END 2024-04-03 17:43 | disposition home or self-care (01) ==
LOC: DL.ED 14:36
DX: R07.89 Other chest pain (principal); K21.00 Gastro-esophageal reflux disease with esophagitis, without bleeding; G45.9 Transient cerebral ischemic attack, unspecified; I10 Essential (primary) hypertension; E11.9 Type 2 diabetes mellitus without complications; E66.9 Obesity, unspecified; Z79.4 Long term (current) use of insulin; Z79.899 Other long term (current) drug therapy; Z88.6 Allergy status to analgesic agent
CPT/HCPCS: 36415; 71045; 80053; 83690; 84484; 85025; 85610; 85730; 93010; 96361; 96374; 99284; 99285-25; A9270-GY; J3490; J7030

== ENCOUNTER 2024-05-26 18:48 | Emergency (ER) | payer MEDICAID ==
[2024-05-26] MEDS ORDERED: Sodium Chloride 0.9% 10 ML Syringe FLUSH PRN (18:53)
[2024-05-26 19:07] LABS: BASOPHILS PERCENT AUTO 0.3 % (0.0-1.0); EOSINOPHILS PERCENT AUTO 3.4 % (1.0-3.0); HEMATOCRIT 38.2 % (37.0-47.0); HEMOGLOBIN 12.9 g/dL (12.0-16.0); LYMPHOCYTES PERCENT AUTO 39.4 % (20.5-50.1); MEAN CORPUSCULAR HEMOGLOBIN 26.5 pg (27.0-34.0); MEAN CORPUSCULAR HGB CONC 33.8 g/dL (33.0-35.0); MEAN CORPUSCULAR VOLUME 78.6 fL (80-100); NEUTROPHILS PERCENT AUTO 48.9 % (42.2-75.2); PLATELET COUNT,PLT 226 10^3/uL (150-450); RED BLOOD CELL COUNT 4.86 10^6/uL (4.2-5.4); WHITE BLOOD CELL COUNT,WBC 6.1 10^3/uL (5.0-10.0)
[2024-05-26 19:14] VITALS: BP 168/68; PULSE 55
[2024-05-26 19:29] LABS: A/G RATIO 0.8; ALANINE AMINOTRANSFERASE,ALT 10 U/L (14-59); ALBUMIN 3.6 g/dL (3.4-5.0); ALKALINE PHOSPHATASE 108 U/L (46-116); ANION GAP 13.9 mEq/L (7-13); ASPARTATE AMNIOTRANSFERASE,AST 19 U/L (15-37); BILIRUBIN TOTAL 0.9 mg/dL (0.2-1.0); BLOOD UREA NITROGEN,BUN 5 mg/dL (7-18); BUN/CREATININE RATIO 7.2 (No establ ref range); CARBON DIOXIDE,CO2 24 mmol/L (21-32); CHLORIDE,CL 103 mmol/L (98-107); CREATININE 0.69 mg/dL (0.55-1.02); EST CRCL DRUG DOSING (CG) 80.15 mL/min; GLUCOSE RANDOM 122 mg/dL (70-99); LACTIC ACID 1.9 mmol/L (0.4-2.0); MAGNESIUM 2.1 mg/dL (1.8-2.4); POTASSIUM,K 3.9 mmol/L (3.5-5.1); PROTEIN TOTAL,TP 8.1 g/dL (6.4-8.2); SODIUM,NA 137 mmol/L (136-145)
[2024-05-26 19:34] LABS: C-REACTIVE PROTEIN < 0.50 ng/dL (<=0.50); ESTIMATED GFR 99 mL/min (>=60); ETHANOL BLOOD MEDICAL < 3 mg/dL (0)
[2024-05-26 19:52] LABS: INR 0.9 (0.9-1.2); PROTHROMBIN TIME 9.8 SEC (9.0-12.0); PTT,PARTIAL THROMBOPLSTIN TIME 25.9 SEC (22.0-34.0)
== END 2024-05-26 19:56 | disposition home or self-care (01) ==
LOC: DL.ED 18:48
DX: R07.89 Other chest pain (principal); I10 Essential (primary) hypertension; J45.909 Unspecified asthma, uncomplicated; E11.9 Type 2 diabetes mellitus without complications; E66.9 Obesity, unspecified; Z68.30 Body mass index [BMI] 30.0-30.9, adult; Z88.6 Allergy status to analgesic agent; Z79.4 Long term (current) use of insulin; Z79.899 Other long term (current) drug therapy
CPT/HCPCS: 36415; 71045; 80053; 80307; 83605; 83735; 84145; 84484; 85025; 85610; 85730; 86140; 93005; 93010; 99284; 99285

== ENCOUNTER 2024-05-28 21:28 | Emergency (ER) | payer MEDICAID ==
[2024-05-28 21:48] LABS: BASOPHILS PERCENT AUTO 0.4 % (0.0-1.0); EOSINOPHILS PERCENT AUTO 5.1 % (1.0-3.0); HEMATOCRIT 37.4 % (37.0-47.0); HEMOGLOBIN 12.7 g/dL (12.0-16.0); LYMPHOCYTES PERCENT AUTO 40.8 % (20.5-50.1); MEAN CORPUSCULAR HEMOGLOBIN 26.7 pg (27.0-34.0); MEAN CORPUSCULAR VOLUME 78.7 fL (80-100); MONOCYTES PERCENT AUTO 8.3 % (2-8); NEUTROPHILS PERCENT AUTO 45.4 % (42.2-75.2); PLATELET COUNT,PLT 225 10^3/uL (150-450); RED BLOOD CELL COUNT 4.75 10^6/uL (4.2-5.4); WHITE BLOOD CELL COUNT,WBC 5.3 10^3/uL (5.0-10.0)
[2024-05-28] MEDS: GI Cocktail Oral Solution 30 ML PO ONE (21:52)
[2024-05-28] MEDS: Sodium Chloride 0.9% 10 ML Syringe FLUSH PRN (21:52)
[2024-05-28 22:08] LABS: B-TYPE NATRIURETIC PEPTIDE,BNP 6 pg/ml (0-100)
[2024-05-28 22:09] LABS: INR 0.9 (0.9-1.2); PROTHROMBIN TIME 9.6 SEC (9.0-12.0)
[2024-05-28 22:15] LABS: A/G RATIO 0.8; ALANINE AMINOTRANSFERASE,ALT 8 U/L (14-59); ALBUMIN 3.7 g/dL (3.4-5.0); ALKALINE PHOSPHATASE 121 U/L (46-116); ANION GAP 13.3 mEq/L (7-13); ASPARTATE AMNIOTRANSFERASE,AST 12 U/L (15-37); BILIRUBIN TOTAL 0.9 mg/dL (0.2-1.0); BLOOD UREA NITROGEN,BUN 5 mg/dL (7-18); BUN/CREATININE RATIO 6.3 (No establ ref range); CALCIUM 9.1 mg/dL (8.5-10.1); CARBON DIOXIDE,CO2 25 mmol/L (21-32); CHLORIDE,CL 101 mmol/L (98-107); CREATININE 0.79 mg/dL (0.55-1.02); GLUCOSE RANDOM 127 mg/dL (70-99); LACTIC ACID 1.8 mmol/L (0.4-2.0); MAGNESIUM 1.8 mg/dL (1.8-2.4); POTASSIUM,K 3.3 mmol/L (3.5-5.1); PROTEIN TOTAL,TP 8.3 g/dL (6.4-8.2); SODIUM,NA 136 mmol/L (136-145)
[2024-05-28 22:16] LABS: C-REACTIVE PROTEIN < 0.50 ng/dL (<=0.50); ESTIMATED GFR 85 mL/min (>=60); ETHANOL BLOOD MEDICAL < 3 mg/dL (0)
[2024-05-28 22:21] VITALS: BP 156/74; PULSE 58
[2024-05-28 22:30] LABS: APPEARANCE,URINE SLIGHTLY CLOUDY (CLEAR); BILIRUBIN,URINE NEGATIVE (NEGATIVE); COLOR,URINE YELLOW (YELLOW); GLUCOSE,URINE NEGATIVE (NEGATIVE); KETONES,URINE NEGATIVE (NEGATIVE); LEUKOCYTE ESTERASE,URINE TRACE (NEGATIVE); NITRITE,URINE NEGATIVE (NEGATIVE); OCCULT BLOOD,URINE TRACE-INTACT (NEGATIVE); PH,URINE 5.5 (5.0-9.0); PROTEIN,URINE NEGATIVE (NEGATIVE); UROBILINOGEN,URINE 0.2 mg/dL (0.2-1.0)
[2024-05-28 22:32] LABS: AMPHETAMINES,URINE NEGATIVE (NEGATIVE); BARBITURATES,URINE NEGATIVE (NEGATIVE); BENZODIAZEPINE,URINE NEGATIVE (NEGATIVE); MDMA (ECSTASY), URINE NEGATIVE (NEGATIVE); METHADONE,URINE NEGATIVE (NEGATIVE); METHAMPHETAMINES,URINE NEGATIVE (NEGATIVE); OPIATES,URINE NEGATIVE (NEGATIVE); OXYCODONE,URINE NEGATIVE (NEGATIVE); PHENCYCLIDINE,URINE NEGATIVE (NEGATIVE); TCA,URINE NEGATIVE (NEGATIVE)
[2024-05-28 22:45] LABS: BACTERIA,URINE FEW /HPF (0-FEW/HPF); EPITHELIAL CELLS,URINE FEW /HPF (NOT SEEN); MUCUS,URINE FEW /LPF (NOT SEEN)
[2024-05-28] MEDS: Pantoprazole 40 MG Vial IVPUSH ONE (22:56)
[2024-05-28] MEDS: Potassium Chloride 10 MEQ Tab.ER PO ONE (22:56)
[2024-05-28] MEDS: Ondansetron 4 MG/2 ML SDV IVPUSH ONE (22:59)
== END 2024-05-28 23:18 | disposition home or self-care (01) ==
LOC: DL.ED 21:28
DX: R07.2 Precordial pain (principal); E87.6 Hypokalemia; K21.9 Gastro-esophageal reflux disease without esophagitis; I10 Essential (primary) hypertension; J45.909 Unspecified asthma, uncomplicated; E11.9 Type 2 diabetes mellitus without complications; E66.9 Obesity, unspecified; Z68.27 Body mass index [BMI] 27.0-27.9, adult; Z79.4 Long term (current) use of insulin; Z88.6 Allergy status to analgesic agent
CPT/HCPCS: 36415; 71045; 80053; 80305; 80307; 81001; 82947; 83605; 83735; 83880; 84145; 84484; 85025; 85610; 85730; 86140; 87086; 87635; 87804; 93005; 96374; 96375; 99285; A9270; J2405; J2470; 93010; 99284; J3490; U0002

== ENCOUNTER 2024-08-16 18:38 | Emergency (ER) | payer MEDICAID, OTHER ==
[2024-08-16] MEDS: Acetaminophen 325 MG Tab PO ONE (19:21)
[2024-08-16 19:25] LABS: BASOPHILS PERCENT AUTO 0.2 % (0.0-1.0); EOSINOPHILS PERCENT AUTO 2.6 % (1.0-3.0); HEMATOCRIT 40.8 % (37.0-47.0); HEMOGLOBIN 13.6 g/dL (12.0-16.0); LYMPHOCYTES PERCENT AUTO 39.8 % (20.5-50.1); MEAN CORPUSCULAR HEMOGLOBIN 27.1 pg (27.0-34.0); MEAN CORPUSCULAR HGB CONC 33.3 g/dL (33.0-35.0); MEAN CORPUSCULAR VOLUME 81.4 fL (80-100); MONOCYTES PERCENT AUTO 6.6 % (2-8); NEUTROPHILS PERCENT AUTO 50.8 % (42.2-75.2); PLATELET COUNT,PLT 260 10^3/uL (150-450); RED BLOOD CELL COUNT 5.01 10^6/uL (4.2-5.4); WHITE BLOOD CELL COUNT,WBC 8.2 10^3/uL (5.0-10.0)
[2024-08-16 19:43] LABS: A/G RATIO 0.8; ALANINE AMINOTRANSFERASE,ALT 10 U/L (14-59); ALBUMIN 3.7 g/dL (3.4-5.0); ALKALINE PHOSPHATASE 111 U/L (46-116); ANION GAP 12.4 mEq/L (7-13); ASPARTATE AMNIOTRANSFERASE,AST 11 U/L (15-37); BILIRUBIN TOTAL 0.7 mg/dL (0.2-1.0); BLOOD UREA NITROGEN,BUN 8 mg/dL (7-18); BUN/CREATININE RATIO 9.9 (No establ ref range); CALCIUM 9.1 mg/dL (8.5-10.1); CARBON DIOXIDE,CO2 28 mmol/L (21-32); CHLORIDE,CL 105 mmol/L (98-107); CREATININE 0.81 mg/dL (0.55-1.02); GLUCOSE RANDOM 107 mg/dL (70-99); LIPASE 27 U/L (16-77); POTASSIUM,K 3.4 mmol/L (3.5-5.1); PROTEIN TOTAL,TP 8.4 g/dL (6.4-8.2); SODIUM,NA 142 mmol/L (136-145)
[2024-08-16 19:44] LABS: ESTIMATED GFR 83 mL/min (>=60)
[2024-08-16 19:47] LABS: APPEARANCE,URINE CLEAR (CLEAR); BILIRUBIN,URINE NEGATIVE (NEGATIVE); COLOR,URINE YELLOW (YELLOW); GLUCOSE,URINE NEGATIVE (NEGATIVE); KETONES,URINE NEGATIVE (NEGATIVE); LEUKOCYTE ESTERASE,URINE NEGATIVE (NEGATIVE); NITRITE,URINE NEGATIVE (NEGATIVE); OCCULT BLOOD,URINE TRACE-LYSED (NEGATIVE); PROTEIN,URINE NEGATIVE (NEGATIVE); UROBILINOGEN,URINE 0.2 mg/dL (0.2-1.0)
[2024-08-16] MEDS: Potassium Chloride 10 MEQ Tab.ER PO ONE (19:56)
[2024-08-16 20:02] LABS: BACTERIA,URINE RARE /HPF (0-FEW/HPF); EPITHELIAL CELLS,URINE RARE /HPF (NOT SEEN); RBC,URINE 0-5 /HPF (0-5); WBC,URINE NOT SEEN /HPF (0-5/HPF)
[2024-08-16 21:45] VITALS: BP 125/66; PULSE 52
== END 2024-08-16 21:28 | disposition home or self-care (01) ==
LOC: DL.ED 18:38
DX: R07.2 Precordial pain (principal); I10 Essential (primary) hypertension; J45.909 Unspecified asthma, uncomplicated; E11.9 Type 2 diabetes mellitus without complications; E66.9 Obesity, unspecified; Z68.28 Body mass index [BMI] 28.0-28.9, adult; Z88.6 Allergy status to analgesic agent; Z79.4 Long term (current) use of insulin; Z79.899 Other long term (current) drug therapy
CPT/HCPCS: 36415; 71045; 80053; 81001; 82947; 83690; 83735; 84484; 85025; 85379; 93005; 93010; 99284; 99285; A9270-GY

== ENCOUNTER 2024-12-13 19:24 | Emergency (ER) | payer MEDICAID, OTHER ==
[2024-12-13 19:50] LABS: APPEARANCE,URINE CLEAR (CLEAR); BILIRUBIN,URINE NEGATIVE (NEGATIVE); COLOR,URINE YELLOW (YELLOW); GLUCOSE,URINE NEGATIVE (NEGATIVE); KETONES,URINE NEGATIVE (NEGATIVE); LEUKOCYTE ESTERASE,URINE NEGATIVE (NEGATIVE); NITRITE,URINE NEGATIVE (NEGATIVE); OCCULT BLOOD,URINE TRACE-LYSED (NEGATIVE); PROTEIN,URINE NEGATIVE (NEGATIVE); UROBILINOGEN,URINE 0.2 mg/dL (0.2-1.0)
[2024-12-13] MEDS: Ketorolac 30 MG/ML SDV IM ONE (19:54)
[2024-12-13] MEDS: Orphenadrine 60 MG/2 ML Inj IM ONE (19:54)
[2024-12-13 20:03] LABS: BACTERIA,URINE RARE /HPF (0-FEW/HPF); EPITHELIAL CELLS,URINE RARE /HPF (NOT SEEN); RBC,URINE 0-5 /HPF (0-5); WBC,URINE 0-5 /HPF (0-5/HPF)
[2024-12-13] MEDS: Take Home: Cyclobenzaprine 10 MG Tab, 4 Tab Pack PO ONE (21:08)
[2024-12-13 21:22] VITALS: BP 147/60; PULSE 51
== END 2024-12-13 21:22 | disposition home or self-care (01) ==
LOC: DL.ED 19:24
DX: M47.817 Spondylosis without myelopathy or radiculopathy, lumbosacral region (principal); M99.53 Intervertebral disc stenosis of neural canal of lumbar region; I10 Essential (primary) hypertension; J44.9 Chronic obstructive pulmonary disease, unspecified; E11.9 Type 2 diabetes mellitus without complications; Z88.6 Allergy status to analgesic agent; Z79.4 Long term (current) use of insulin; Z79.899 Other long term (current) drug therapy
CPT/HCPCS: 72100; 81001; 96372; 99283; 99284; A9270; J1885; J2360

== ENCOUNTER 2025-03-13 12:28 | Emergency (ER) | payer MEDICAID, OTHER ==
[2025-03-13] MEDS ORDERED: Sodium Chloride 0.9% 10 ML Syringe FLUSH PRN (12:32)
[2025-03-13 12:40] LABS: BASOPHILS PERCENT AUTO 0.3 % (0.0-1.0); EOSINOPHILS PERCENT AUTO 3.5 % (1.0-3.0); LYMPHOCYTES PERCENT AUTO 47.1 % (20.5-50.1); MONOCYTES PERCENT AUTO 6.5 % (2-8); NEUTROPHILS PERCENT AUTO 42.6 % (42.2-75.2); PLATELET COUNT,PLT 217 10^3/uL (150-450); RED BLOOD CELL COUNT 4.75 10^6/uL (4.2-5.4); WHITE BLOOD CELL COUNT,WBC 5.7 10^3/uL (5.0-10.0)
[2025-03-13] MEDS: Nitroglycerin 0.4 MG Tab.SL SL ONE (12:45)
[2025-03-13 12:52] LABS: INR 0.9 (0.9-1.2)
[2025-03-13 13:01] LABS: A/G RATIO 0.9; ALANINE AMINOTRANSFERASE,ALT 11 U/L (14-59); ASPARTATE AMNIOTRANSFERASE,AST 15 U/L (15-37); BILIRUBIN TOTAL 0.8 mg/dL (0.2-1.0); BLOOD UREA NITROGEN,BUN 7 mg/dL (7-18); CARBON DIOXIDE,CO2 27 mmol/L (21-32); CHLORIDE,CL 106 mmol/L (98-107); CREATININE 0.72 mg/dL (0.55-1.02); EST CRCL DRUG DOSING (CG) 73.83 mL/min; GLUCOSE RANDOM 66 mg/dL (70-99); POTASSIUM,K 3.4 mmol/L (3.5-5.1); PROTEIN TOTAL,TP 8.0 g/dL (6.4-8.2); SODIUM,NA 143 mmol/L (136-145)
[2025-03-13 13:02] LABS: ESTIMATED GFR 95 mL/min (>=60)
[2025-03-13 13:03] LABS: D-DIMER QUANTITATIVE 205.0 ng/mL (0-400)
[2025-03-13] MEDS: Potassium Chloride 10 MEQ Tab.ER PO ONE (13:33)
[2025-03-13 14:22] VITALS: BP 154/64; PULSE 45
== END 2025-03-13 14:45 | disposition home or self-care (01) ==
LOC: DL.ED 12:28
DX: I20.89 Other forms of angina pectoris (principal); I10 Essential (primary) hypertension; J45.909 Unspecified asthma, uncomplicated; E11.9 Type 2 diabetes mellitus without complications; Z88.6 Allergy status to analgesic agent; Z79.899 Other long term (current) drug therapy; Z79.4 Long term (current) use of insulin
CPT/HCPCS: 36415; 71045; 80053; 83690; 83735; 84484; 85025; 85379; 85610; 86140; 93005; 99285; A9270

== ENCOUNTER 2025-04-20 22:46 | Emergency (ER) | payer MEDICAID, OTHER ==
[2025-04-21 00:09] LABS: AMPHETAMINES,URINE NEGATIVE (NEGATIVE); APPEARANCE,URINE CLEAR (CLEAR); BARBITURATES,URINE NEGATIVE (NEGATIVE); GLUCOSE,URINE NEGATIVE (NEGATIVE); MDMA (ECSTASY), URINE NEGATIVE (NEGATIVE); METHAMPHETAMINES,URINE NEGATIVE (NEGATIVE); OCCULT BLOOD,URINE SMALL (NEGATIVE); OPIATES,URINE NEGATIVE (NEGATIVE); OXYCODONE,URINE NEGATIVE (NEGATIVE); PHENCYCLIDINE,URINE NEGATIVE (NEGATIVE); TCA,URINE NEGATIVE (NEGATIVE)
[2025-04-21 00:36] LABS: EPITHELIAL CELLS,URINE FEW /HPF (NOT SEEN)
[2025-04-21 00:43] LABS: BASOPHILS PERCENT AUTO 0.3 % (0.0-1.0); EOSINOPHILS PERCENT AUTO 3.9 % (1.0-3.0); LYMPHOCYTES PERCENT AUTO 32.8 % (20.5-50.1); MONOCYTES PERCENT AUTO 7.6 % (2-8); NEUTROPHILS PERCENT AUTO 55.4 % (42.2-75.2); PLATELET COUNT,PLT 220 10^3/uL (150-450); RED BLOOD CELL COUNT 4.41 10^6/uL (4.2-5.4); WHITE BLOOD CELL COUNT,WBC 5.9 10^3/uL (5.0-10.0)
[2025-04-21 00:55] LABS: LACTIC ACID 0.9 mmol/L (0.4-2.0)
[2025-04-21 01:00] LABS: A/G RATIO 0.8; ALANINE AMINOTRANSFERASE,ALT 13 U/L (14-59); ASPARTATE AMNIOTRANSFERASE,AST 12 U/L (15-37); BILIRUBIN TOTAL 0.6 mg/dL (0.2-1.0); BLOOD UREA NITROGEN,BUN 8 mg/dL (7-18); CARBON DIOXIDE,CO2 28 mmol/L (21-32); CHLORIDE,CL 104 mmol/L (98-107); CREATININE 0.64 mg/dL (0.55-1.02); GLUCOSE RANDOM 98 mg/dL (70-99); POTASSIUM,K 3.4 mmol/L (3.5-5.1); PROTEIN TOTAL,TP 7.6 g/dL (6.4-8.2); SODIUM,NA 141 mmol/L (136-145); TSH ULTRASENSITIVE 3.40 uIU/mL (0.36-3.74)
[2025-04-21 01:01] LABS: ESTIMATED GFR 100 mL/min (>=60); ETHANOL BLOOD MEDICAL < 3 mg/dL (0)
[2025-04-21 01:35] VITALS: BP 139/79; PULSE 50
== END 2025-04-21 01:33 | disposition home or self-care (01) ==
LOC: DL.ED 22:46
DX: R20.2 Paresthesia of skin (principal); I10 Essential (primary) hypertension; E11.9 Type 2 diabetes mellitus without complications; Z88.6 Allergy status to analgesic agent; Z79.4 Long term (current) use of insulin; Z79.899 Other long term (current) drug therapy
CPT/HCPCS: 36415; 70450; 71045; 80053; 80305; 80307; 81001; 83605; 83735; 84443; 84484; 85025; 93005; 96360; 99284; J7030; 81003